=== PATIENT | female | born 1955 | race Caucasian/White ===

== ENCOUNTER → 2017-06-09 11:01 | Outpatient (CLI) | payer SELFPAY ==
[2017-06-09 12:24] LABS: Hematocrit 37.8 % (37-47); Hemoglobin 12.4 g/dl (12.0-15.0); Mean Corp Hgb Conc 32.8 g/gl (32-36); Mean Corpuscular Hgb 30.5 pg (27.0-32.0); Mean Corpuscular Volume 92.9 fL (81-99); Mean Platelet Vol. 9.9 fl (6.2-12.0); Platelet Count 246 K/mm3 (150-450); RBC Distribution Width CV 12.7 % (11.6-14.6); RBC Distribution Width SD 42.3 fl (35.1-43.9); Red Blood Count 4.07 M/mm3 (4.2-5.4); White Blood Count 4.4 K/mm3 (4.4-11.0)
[2017-06-09 12:28] LABS: Scan Indicated on CBC? Y/N NO
[2017-06-09 12:34] LABS: ALB/GLOB Ratio 1.1 RATIO (0.9-2.4); AST(SGOT) 22 U/L (15-37); Alanine Aminotransfer ALT/SGPT 25 U/L (13-56); Albumin, Serum 3.9 g/dL (3.2-5.0); Alkaline Phosphatase 56 U/L (45-117); Anion Gap 5 (5-15); BUN 14 mg/dL (7-18); BUN/Creat Ratio 22.6 RATIO (10-20); Calcium,Total 9.2 mg/dL (8.5-10.1); Chloride 103 mmol/L (98-107); Creatinine, Serum 0.62 mg/dL (0.55-1.02); EST Glomerular Filtration Rate 104 mL/min (>60); Est Glom Filt Rate - Afr Amer 125 mL/min (>60); Globulin 3.6 g/dL (2.2-4.2); Glucose 88 mg/dL (74-106); Potassium 4.2 mmol/L (3.5-5.1); Protein, Total 7.5 g/dL (6.4-8.2); Sodium Level 140 mmol/L (136-145)
== END ==
PROVIDERS: Family Provider Family Medicine; PCP Family Medicine; Visit Provider Family Medicine
DX: Z01.818 Encounter for other preprocedural examination (principal)
CPT/HCPCS: 36415; 80053; 85027

== ENCOUNTER → 2017-07-28 13:50 | Outpatient (CLI) | payer SELFPAY | PROVIDERS: Family Provider Family Medicine; PCP Family Medicine; Visit Provider Podiatrist | DX: Z01.818 Encounter for other preprocedural examination (principal) ==

== ENCOUNTER → 2018-07-14 10:31 | Outpatient (CLI) | payer SELFPAY ==
[2017-05-03 08:36] VITALS: BMI 19.4
[2018-07-14 13:20] LABS: Anion Gap 6 (5-15); BUN 18 mg/dL (7-18); BUN/Creat Ratio 28.2 RATIO (10-20); Calcium,Total 9.2 mg/dL (8.5-10.1); Chloride 105 mmol/L (98-107); Creatinine, Serum 0.64 mg/dL (0.55-1.02); EST Glomerular Filtration Rate 100 mL/min (>60); Est Glom Filt Rate - Afr Amer 121 mL/min (>60); Glucose 88 mg/dL (74-106); Potassium 4.1 mmol/L (3.5-5.1); Sodium Level 143 mmol/L (136-145); Thyroid Stim Hormone (TSH) 0.36 uIU/mL (0.358-3.74)
[2018-07-14 14:22] LABS: Vitamin D,25 Hydroxy 69.1 ng/mL (29.95-100.01)
== END ==
PROVIDERS: Family Provider Family Medicine; PCP Family Medicine; Referring Provider Family Medicine; Visit Provider Family Medicine
DX: I10 Essential (primary) hypertension (principal); E03.9 Hypothyroidism, unspecified; M81.0 Age-related osteoporosis without current pathological fracture
CPT/HCPCS: 36415; 80048; 82306; 84443

== ENCOUNTER → 2020-01-24 10:53 | Outpatient (CLI) | payer MEDICARE, BC, SELFPAY ==
--- NOTE | 2020-01-24 10:59 | RAD_ITS ---
HISTORY: back pain ADDITIONAL HISTORY: None provided. EXAMINATION/TECHNIQUE: XR Spine Thoracic 3 Views Number of images including paperwork: 3 COMPARISON: 12/01/2011 FINDINGS: VERTEBRAE: No acute fracture. VERTEBRAL ALIGNMENT: No traumatic subluxation. 25 right convex thoracic scoliosis, previously 22. DISKS AND JOINTS: Mild to moderate multilevel discogenic degenerative changes. SOFT TISSUES: Unremarkable paraspinous soft tissues. ANCILLARY FINDINGS: Enlarged cardiac silhouette. Surgical clips right lower neck. RAD/Thoracic Spine 3 Views IMPRESSION: No acute findings. Degenerative changes. Thoracic scoliosis. at [id number] Reported and signed by: Lety Daniel MD Electronically Signed: Lety Daniel MD at 23:04 EDT Tel , Service support ,
== END ==
PROVIDERS: PCP Family Medicine; Referring Provider Family Medicine; Visit Provider Family Medicine
DX: M54.9 Dorsalgia, unspecified (principal)
CPT/HCPCS: 72072

== ENCOUNTER → 2020-03-01 10:49 | Outpatient (CLI) | payer MEDICARE, BC, SELFPAY ==
--- NOTE | 2020-03-01 10:53 | RAD_ITS ---
STUDY: X-RAY - PELVIS REASON FOR EXAM: Female, 64 years old. Patient states back and hip pain. Hx of arthritis. TECHNIQUE: One view of the pelvis was obtained. COMPARISON: None. FINDINGS: There is a non-specific bowel gas pattern. There are multiple calcified phleboliths. Normal bilateral iliac wings, sacroiliac joints and visualized sacrum. Normal visualized bilateral superior and inferior pubic rami. Normal pubic symphysis. Normal ischial tuberosities. Normal visualized right femoral head. Normal right acetabulum. Normal right hip joint. Normal visualized left femoral head. Normal left acetabulum. Normal left hip joint. RAD/Pelvis 1 or 2 Views IMPRESSION: Normal x-ray examination of the pelvis. Electronically Signed: Chava Cardenas, at 15:58 EST , Service support ,
[2020-03-01 12:49] LABS: Erythrocyte Sedimentation Rate 8 mm/hr (0-30)
[2020-03-01 12:52] LABS: Absolute Lymphocyte Count 1.07 X10^3/uL (0.83-4.51); Absolute Neutrophil Count 2.5 X10^3/uL (2.0-7.7); Basophil# 0.03 X10^3/uL; Basophil% 0.7 % (0-1); Eosinophil# 0.12 X10^3/uL; Eosinophils% 2.9 % (0-5); Hematocrit 36.3 % (37-47); Hemoglobin 11.5 g/dL (12.0-15.0); Lymphocyte # 1.07 X10^3/ul (4.0); Lymphocyte % 25.7 % (19-41); Mean Corp Hgb Conc 31.7 g/dL (32-36); Mean Corpuscular Hgb 29.9 pg (27.0-32.0); Mean Corpuscular Volume 94.3 fL (81-99); Monocyte# 0.41 X10^3/uL; Monocyte% 9.9 % (0-10); NRBC Flagged by Analyzer 0 % (0-5); Neutrophil # 2.53 X10^3/uL (2.7-7.7); Neutrophil % 60.8 % (47-70); Platelet Count 256 K/mm3 (150-450); RBC Distribution Width CV 12.6 % (11.6-14.6); RBC Distribution Width SD 43.6 fl (35.1-43.9); Red Blood Count 3.85 M/mm3 (4.2-5.4); White Blood Count 4.2 K/mm3 (4.4-11.0)
[2020-03-01 13:10] LABS: ALB/GLOB Ratio 1.1 RATIO (0.9-2.4); AST(SGOT) 22 U/L (15-37); Alanine Aminotransfer ALT/SGPT 23 U/L (13-56); Albumin, Serum 3.6 g/dL (3.2-5.0); Alkaline Phosphatase 58 U/L (45-117); Anion Gap 3 (5-15); BUN 20 mg/dL (7-18); BUN/Creat Ratio 31.2 RATIO (10-20); CRP < 2.90 mg/L (0.0-3.0); Calcium,Total 8.9 mg/dL (8.5-10.1); Chloride 110 mmol/L (98-107); Creatinine, Serum 0.64 mg/dL (0.55-1.02); EST Glomerular Filtration Rate 99 mL/min (>60); Est Glom Filt Rate - Afr Amer 119 mL/min (>60); Globulin 3.4 g/dL (2.2-4.2); Glucose 86 mg/dL (74-106); Potassium 3.7 mmol/L (3.5-5.1); Rheumatoid Factor < 10.0 IU/mL (<15); Sodium Level 143 mmol/L (136-145)
[2020-03-01 13:27] LABS: Cholesterol 203 mg/dL (200); High Density Lipoprotein 87 mg/dL; Thyroid Stim Hormone (TSH) 0.46 uIU/mL (0.358-3.74); Triglycerides 86 mg/dL; Very Low Density Lipoprotein 17 mg/dL (5-40)
[2020-03-01 13:35] LABS: PTHIN 57.2 pg/mL (18.4-80.1)
[2020-03-01 13:47] LABS: Vitamin D,25 Hydroxy 63.2 ng/mL
[2020-03-01 14:40] LABS: Hepatitis B Surface Antibody Non-Reactive; Hepatitis B Surface Antigen Non-Reactive (Nonreactive); Hepatitis C Antibody Non-Reactive (Nonreactive)
[2020-03-02 14:38] LABS: ANTINUCLEAR ANTIBODIES DIRECT Negative (Negative)
[2020-03-03 11:03] LABS: CCP IgG Antibodies 4 units (0-19); Hepatitis B Core AB IgM Negative (Negative)
== END ==
PROVIDERS: PCP Family Medicine; Referring Provider Internal Medicine Rheumatology; Visit Provider Internal Medicine Rheumatology
DX: L40.59 Other psoriatic arthropathy (principal); L40.8 Other psoriasis; M51.34 Other intervertebral disc degeneration, thoracic region; M41.9 Scoliosis, unspecified; E89.0 Postprocedural hypothyroidism; I10 Essential (primary) hypertension; G47.00 Insomnia, unspecified
CPT/HCPCS: 72170; 80053; 80061; 82306; 83970; 84100; 84443; 85025; 85652; 86038; 86140; 86200; 86431; 86705; 86706; 86803; 87340

== ENCOUNTER 2020-03-06 11:00 | Outpatient (RCR) | payer MEDICARE, BC, SELFPAY ==
--- NOTE | 2020-02-07 11:56 | HP.PTEVAL_ITS ---
Patient's Visit Information ROD MIRAMONTES is a 64 year old F referred to Physical Therapy by Dr. Laci Tinajero MD with a diagnosis of BACK PAIN. Date of Evaluation: 02/07/20 Physical Therapist: Julia Ignacio PT, Cert MDT - Visit Plan Frequency: 2-3x /Week Duration: 4-6 Weeks Plan: THORACIC US, MH, POSTURE CORRECTION/STRENGTHENING, INSTRUCTION IN APPROPRIATE BODY MECHANICS AND ACTIVITY MODIFICATIONS. DLS STARTING WITH A NEUTRAL SPINE PROGRESSING ROM TOLERATED. FACUNDO LE ROM, STRETCHING AND STRENGTHENING. HEP INSTRUCTION. - Subjective Work/Leisure: UNEMPLOYEED. Present symptoms: MID BACK PAIN CENTRALLY AND OFF TO THE RIGHT. Present since: A FEW YEARS. Pain Scale: WORST 5/10, LEAST 0/10. Currently: 0/10. Commenced as a result of: NO APPARENT REASON. Symptoms at onset: SAME. Worse: WORKING IN THE KITCHEN, NOT MOVING AROUND MUCH - STANDING, SOMETIMES IN BED. Better: SITTING, IBUPROFEN PRESCRIPTION, SOMETIMES LYING DOWN. SITTING IS THE BEST. Disturbed sleep: A LITTLE BIT. Previous history/Previous treatment: UNREMARKABL. Coughing/sneezing/straining: NEGATIVE. Gait: NORMAL. Difficulty initiating urinatin: NO. Accidents: NO. Unexplained weight loss: NO. Imaging: RECENT BACK X-RAY SHOWING SCOLIOSIS AND ARTHRITIS PER PATIENT REPORT. [facility] EMR: COMPARISON: 12/01/2011. FINDINGS: VERTEBRAE: No acute fracture. VERTEBRAL ALIGNMENT: No traumatic subluxation. 25 right convex thoracic. scoliosis, previously 22. DISKS AND JOINTS: Mild to moderate multilevel discogenic degenerative. changes. SOFT TISSUES: Unremarkable paraspinous soft tissues. ANCILLARY FINDINGS: Enlarged cardiac silhouette. Surgical clips right lower. neck. RAD/Thoracic Spine 3 Views. IMPRESSION: No acute findings. Degenerative changes. Thoracic scoliosis. PMH/Recent major surgery: H/O THYROID CA - THYROIDECTOMY. HTN. OSTEOPOROSIS. NECK PAIN AND STIFFNESS. OTHER: PATIENT REPORTS IT IS AGONIZING IF SHE IS IN THE KITCHEN TOO LONG OR STANDS TOO LONG. 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 ALSO STATES SHE WALKS AND JOGS. - Objective Sitting/Standing Posture: SCOLIOSIS WITH RIGHT RIB HUMP. Active Correction of posture: NE. Other Observations: INDEP GAIT AND TRANSFERS. Motor deficit: FACUNDO UE'S AND LE'S WFL. Sensory deficit: FACUNDO UE'S AND LE'S INTACT AND SYMMETRICAL. ROM deficit: FACUNDO UE'S AND LE'S WFL. Reflexes: UNABLE TO ELICIT FACUNDO UE AND LE DTR'S BUT PATIENT IS VERY GUARDED. Dural Signs: NEGATIVE FACUNDO LE'S. Lumbar mvmt loss: flex - NIL. ext - MIN. R SG - MIN. L SG - MIN. THORACIC MVMT LOSS: FLEX - NIL, EXT - MOD, R ROT - MOD, L ROT - MIN. Core strength: FAIR. Palpation: RIGHT RIB HUMP. TREATMENT: NEUROMUSCULAR REEDUCATION - RETRAINING OF MVMT AND POSTURE FOR SITTING, LYING AND STANDING ACTIVITIES. - Goals Goal 1:: DECREASE C/O BACK PAIN Goal Time Frame: 4-6 Weeks Goal 2:: IMPROVE SITTING, STANDING, SLEEP AND HOMEMAKING FUNCTION. Goal Time Frame: 4-6 Weeks Goal 3:: INSTRUCT IN PROPHYLAXIS - Anticipated Interventions Patient/Client Instruction: Educate patient on: Condition, Plan of Care, Risk Factors, Benefits of Fitness Program For the Purpose of:: To improve self management Therapeutic Exercise to Include: Strength training, Body mechanics, Postural training, Flexibilty training, Neuromotor development, Dynamic Lumbar Stabilization Comment: PATIENT DOES NOT REALLY LIKE WATER For the Purpose of:: To decrease pain, To improve muscle performance and motor function, To increase tolerance to activity/condition/position, To improve ability of physical actions for home/community/work/leisure Cryotherapy (ice pack, ice massage): Yes Thermo therapy (hot pack): Yes Ultrasound (thermal/non thermal): Yes For the Purpose of:: To decrease pain, To improve nutrient delivery to tissue Thank you for the opportunity to evaluate your patient. For Medicare and Medicare HMO plans, please review the plan of care and approve it. It will need to be FAXED BACK to us at [phone] for Medicare purposes. For Medicare only, by signing this I certify the plan of care. Please let me know if there are questions or concerns regarding this plan of care. Physician S ignature: Date:
--- NOTE | 2020-03-06 12:36 | HP.PTDCSUM ---
It has been my pleasure to treat ROD MIRAMONTES referred by Dr. Laci Tinajero MD, with the diagnosis of BACK PAIN for a total of 5 visit(s). Discharge Date: 03/06/20 Please see the following information for a summary of their discharge status. Subjective: PATIENT REPORTS SHE IS DOING A LOT BETTER. SHE REPORTS SHE IS DOING GOOD WITH HER EX'S AND DOESN'T THINK SHE NEEDS THE US ANYMORE. STATES SHE CAN CONTROL HER PAIN MUCH BETTER NOW AND WOULD LIKE TODAY TO BE HER LAST CELIO'T. MID BACK Pain Intensity (Out of 10): 0 % Improvement: 75 Objective/Function: PATIENT WAS SEEN TODAY FOR RE-ASSESSMENT OF PROGRESS TOWARD THE SET PT GOALS AND THE NEED FOR FURTHER PHYSICAL THERAPY VS READINESS FOR DISCHARGE. PATIENT IS A INDEP WITH A HEP AND WOULD LIKE TO BE DISCHARGE TO CONTINUE WITH THE HOME EX'S AT THIS TIME. UPON EXAM TODAY: Lumbar mvmt loss: flex - NIL. ext - MIN. R SG - MIN. L SG - MIN. THORACIC MVMT LOSS: FLEX - NIL, EXT - MIN, R ROT - MIN, L ROT - MIN. Core strength: FAIR. Palpation: RIGHT RIB HUMP Goal 1:: DECREASE C/O BACK PAIN Goal Progress: Goal Met Goal 2:: IMPROVE SITTING, STANDING, SLEEP AND HOMEMAKING FUNCTION. Goal Progress: Goal Met Goal 3:: INSTRUCT IN PROPHYLAXIS Goal Progress: Goal Met Plan: D/C. PATIENT AGREEABLE. If there are questions or concerns regarding this patient's physical therapy, please feel free to call me at [phone]. Thank you for the referral of this patient. Sincerely, Julia Ignacio, PT, Cert MDT
== END 2020-03-06 13:43 | disposition home or self-care (01) ==
LOC: PT 11:00
PROVIDERS: PCP Family Medicine; Referring Provider Family Medicine; Visit Provider Family Medicine
DX: M54.9 Dorsalgia, unspecified (principal)
CPT/HCPCS: 97035; 97110; 97112; 97140; 97162; 97164; 97530

== ENCOUNTER → 2020-07-10 10:37 | Outpatient (CLI) | payer MEDICARE, BC, SELFPAY ==
[2020-07-10 13:24] LABS: Anion Gap 4 (5-15); BUN 15 mg/dL (7-18); BUN/Creat Ratio 23.3 RATIO (10-20); Calcium,Total 9.5 mg/dL (8.5-10.1); Chloride 105 mmol/L (98-107); Creatinine, Serum 0.64 mg/dL (0.55-1.02); EST Glomerular Filtration Rate 98 mL/min (>60); Est Glom Filt Rate - Afr Amer 119 mL/min (>60); Glucose 90 mg/dL (74-106); Potassium 3.9 mmol/L (3.5-5.1); Sodium Level 141 mmol/L (136-145)
== END ==
PROVIDERS: PCP Family Medicine; Referring Provider Family Medicine; Visit Provider Family Medicine
DX: I10 Essential (primary) hypertension (principal)
CPT/HCPCS: 36415; 80048

== ENCOUNTER → 2020-07-31 09:54 | Outpatient (CLI) | payer MEDICARE, BC, SELFPAY ==
--- NOTE | 2020-07-31 09:58 | BD_ITS ---
STUDY: DUAL ENERGY X-RAY ABSORPTIOMETRY / DXA REASON FOR EXAM: Female, 64 years old. [id number] TECHNIQUE: Bone Mineral Density (BMD) measurements of lumbar spine and bilateral hips were obtained. COMPARISON: Comparison is made with prior study dated 10/30/2015. FINDINGS: Lumbar Spine (L1-L4): g/cm2 (0.827) / T-score (-2.9) / Z-score (-1.3) Findings are suggestive of osteoporosis with a high fracture risk. Left Femur Total: g/cm2 (0.693) / T-score (-2.5) / Z-score (-1.3) Left Femoral Neck: g/cm2 (0.741) / T-score (-2.1) / Z-score (-0.7) Right Femur Total: g/cm2 (0.652) / T-score (-2.8) / Z-score (-1.6) Right Femoral Neck: g/cm2 (0.701) / T-score (-2.4) / Z-score (-0.9) The T-Scores on the most recent prior examination were: Lumbar Spine (L1-L4): There has been worsening of bone density since the previous examination. Left Femur Total: which represents a worsening of 2.3%. Right Femur Total: which represents an improvement of 0.8%. BD/Dexa Bone Density Study IMPRESSION: The patient is considered osteoporotic as outlined below according to World Manoj Organization (WHO) criteria with a high fracture risk. There has been worsening of bone density since the previous examination. Reference Information: The T-score is the number of standard deviations above or below the standard which is normal for young adults at their peak bone mineral density. The World Health Organization (WHO) interprets the T-scores as follows: Above -1 Normal bone density Between -1 and -2.5 Osteopenia Equal to / or below -2.5 Osteoporosis As a practical clinical guideline, osteopenia may be graded as follows: Mild -1 through -1.5 Moderate -1.6 through -2.0 Severe -2.1 through -2.4 The Z-score is the number of standard deviations above or below age-matched controls. A Z-score of less than -1.5 would be considered abnormal. References: 1. NIH Osteoporosis and Related Bone Diseases www osteo.org 2. International Society for Clinical Densitometry www iscd.org 3. National Osteoporosis Foundation www nof.org Electronically Signed: Chava Cardenas MD at 12:28 EDT , Service support ,
== END ==
PROVIDERS: PCP Family Medicine; Referring Provider Family Medicine; Visit Provider Family Medicine
DX: Z00.00 Encounter for general adult medical examination without abnormal findings (principal); Z78.0 Asymptomatic menopausal state
CPT/HCPCS: 77080

== ENCOUNTER → 2020-08-08 08:57 | Outpatient (CLI) | payer MEDICARE, BC, SELFPAY ==
[2017-05-03 08:36] VITALS: BMI 19.4
--- NOTE | 2020-08-08 09:13 | AAAS_ITS ---
Reason For Study: Routine medical exam Aorta Measurements Aorta Doppler Measurements Proximal aorta measures1.76 x 1.74cm. in cross- Peak systolic flow velocities within the proximal sectional axis. aorta measure 86.4 cm/sec. Proximal aorta measures1.78cm. in longitudinal Peak systolic flow velocities within the mid aorta axis. measure 103.9 cm/sec. Mid aorta measures1.52 x 1.54cm. in cross- Peak systolic flow velocities within the distal sectional axis. aorta measure 85.5 cm/sec. Mid aorta measures1.57cm. in longitudinal axis. Distal aorta measures1.45 x 1.42cm. in cross- sectional axis. Distal aorta measures1.40cm. in longitudinal axis. Left Iliac Artery Left iliac artery measures 0.93 x 0.91 cm. in the cross-sectional axis. Left iliac artery measures 0.91 cm. in the longitudinal axis. Peak systolic velocity in the left iliac artery measures 99 cm/sec. Right Iliac Artery Right iliac artery measures 0.82 x 0.80 cm. in the cross-sectional axis. Right iliac artery measures 0.78 cm. in the longitudinal axis. Peak systolic velocity in the right iliac artery measures 115.4 cm/sec. Procedure Aorta IVC Iliac vasculature or bypass grafts [id number]. Exam performed in department. VL/AAA Screening Interpretation Summary The dimensions of the intra-abdominal aorta appear normal, without evidence of aneurysmal dilatation. The iliac arteries are also normal in size bilaterally. The intra-a bdominal aorta and iliac arteries are patent, demonstrating normal, pulsatile arterial flow and no rmal peak systolic velocities. Ordering Physician: Laci Tinajero Referring Physician: Laci Tinajero Performed By: Yajaira Mcdowell RVT and Student
== END ==
PROVIDERS: PCP Family Medicine; Referring Provider Family Medicine; Visit Provider Family Medicine
DX: Z00.00 Encounter for general adult medical examination without abnormal findings (principal)
CPT/HCPCS: 76706

== ENCOUNTER 2021-07-15 11:15 | Outpatient (CLI) | payer MEDICARE, BC, SELFPAY ==
[2021-07-15 16:09] LABS: Vitamin D,25 Hydroxy 53.1 ng/mL
[2021-07-15 16:18] LABS: Anion Gap 3 (5-15); BUN 14 mg/dL (7-18); BUN/Creat Ratio 22.3 RATIO (10-20); Calcium,Total 9.4 mg/dL (8.5-10.1); Chloride 108 mmol/L (98-107); Creatinine, Serum 0.63 mg/dL (0.55-1.02); EST Glomerular Filtration Rate 101 mL/min (>60); Est Glom Filt Rate - Afr Amer 122 mL/min (>60); Glucose 87 mg/dL (74-106); Magnesium 2.2 mg/dL (1.6-2.6); Phosphorus 3.7 mg/dL (2.5-4.9); Potassium 3.8 mmol/L (3.5-5.1); Sodium Level 142 mmol/L (136-145); Thyroid Stim Hormone (TSH) 0.23 uIU/mL (0.358-3.74)
== END 2021-07-15 23:59 | disposition home or self-care (01) ==
PROVIDERS: PCP Family Medicine; Referring Provider Family Medicine; Visit Provider Family Medicine
DX: E03.9 Hypothyroidism, unspecified (principal); M81.0 Age-related osteoporosis without current pathological fracture
CPT/HCPCS: 80048; 82306; 82330; 83735; 84100; 84443

== ENCOUNTER → 2022-10-14 | Outpatient (CLI) | payer MEDICARE, BC, SELFPAY ==
--- NOTE | 2022-10-14 14:19 | RAD_ITS ---
INDICATION: Cough EXAMINATION/TECHNIQUE: X-RAY - XR Chest 2 Views COMPARISON: Thoracic spine x-rays 01/24/2020. FINDINGS: LINES/DEVICES: None. LUNGS: Hyperinflated. Prominence of the interstitial lung markings especially at the lung bases. Biapical pleural thickening. No consolidation. No pneumothorax. MEDIASTINUM: Aorta is atherosclerotic. CARDIAC SILHOUETTE: Not enlarged. BONES AND SOFT TISSUES: Degenerative changes in the dorsal spine and scoliosis. Surgical clips overlying the base of the neck on the right. RAD/Chest PA and Lateral IMPRESSION: Hyperinflated. Findings of probable COPD. No infiltrates. Follow-up CT chest may be helpful if symptoms persist. Electronically Signed: Daxa Brandt MD at 16:58 EDT ,
== END | disposition home or self-care (01) ==
LOC: MTRAD 14:19
PROVIDERS: PCP Family Medicine; Referring Provider Family Medicine; Visit Provider Family Medicine
DX: R05.8 Other specified cough (principal)
CPT/HCPCS: 71046

== ENCOUNTER → 2022-10-29 | Outpatient (CLI) | payer MEDICARE, BC, SELFPAY ==
[2022-10-29 13:41] LABS: Vitamin D,25 Hydroxy 60.4 ng/mL
[2022-10-29 13:48] LABS: ALB/GLOB Ratio 0.9 RATIO (0.9-2.4); AST(SGOT) 20 U/L (15-37); Alanine Aminotransfer ALT/SGPT 19 U/L (13-56); Albumin, Serum 3.5 g/dL (3.2-5.0); Alkaline Phosphatase 73 U/L (45-117); Anion Gap 6 (5-15); BUN 18 mg/dL (7-18); BUN/Creat Ratio 27.6 RATIO (10-20); Calcium,Total 9.4 mg/dL (8.5-10.1); Chloride 108 mmol/L (98-107); Cholesterol 197 mg/dL (200); Creatinine, Serum 0.65 mg/dL (0.55-1.02); EST Glomerular Filtration Rate 96 mL/min (>60); Est Glom Filt Rate - Afr Amer 116 mL/min (>60); Globulin 3.9 g/dL (2.2-4.2); Glucose 92 mg/dL (74-106); High Density Lipoprotein 69 mg/dL; Potassium 4.2 mmol/L (3.5-5.1); Protein, Total 7.4 g/dL (6.4-8.2); Sodium Level 141 mmol/L (136-145); T4 Free Direct 1.46 ng/dL (0.76-1.46); Thyroid Stim Hormone (TSH) 0.15 uIU/mL (0.358-3.74); Triglycerides 65 mg/dL; Very Low Density Lipoprotein 13 mg/dL (5-40)
== END | disposition home or self-care (01) ==
PROVIDERS: PCP Family Medicine; Referring Provider Family Medicine; Visit Provider Family Medicine
DX: Z00.00 Encounter for general adult medical examination without abnormal findings (principal); L40.50 Arthropathic psoriasis, unspecified; Z13.220 Encounter for screening for lipoid disorders; E03.9 Hypothyroidism, unspecified; E55.9 Vitamin D deficiency, unspecified
CPT/HCPCS: 36415; 80053; 80061; 82306; 84439; 84443

== ENCOUNTER → 2023-06-17 | Outpatient (CLI) | payer MEDICARE, BC, SELFPAY ==
--- NOTE | 2023-06-17 13:23 | BD_ITS ---
STUDY: DUAL ENERGY X-RAY ABSORPTIOMETRY / DXA REASON FOR EXAM: Female, 67 years old. M810 TECHNIQUE: Bone Mineral Density (BMD) measurements of lumbar spine and bilateral hips were obtained. COMPARISON: Comparison is made with prior study July 31, 2020. FINDINGS: Lumbar Spine (L1-L4): g/cm2 (0.710) / T-score (-2.8) / Z-score (-0.8) Findings are suggestive of osteoporosis with a high fracture risk. Left Femur Total: g/cm2 (0.621) / T-score (-2.6) / Z-score (-1.2) Left Femoral Neck: g/cm2 (0.535) / T-score (-2.8) / Z-score (-1.1) Right Femur Total: g/cm2 (0.602) / T-score (-2.8) / Z-score (-1.4) Right Femoral Neck: g/cm2 (0.533) / T-score (-2.9) / Z-score (-1.1) The T-Scores on the most recent prior examination were: Lumbar Spine (L1-L4): There has been worsening of bone density since the previous examination. Left Femur Total: which represents a worsening of 2.2%. Right Femur Total: which represents an improvement of 1.1%. BD/Dexa Bone Density Study IMPRESSION: The patient is considered osteoporotic as outlined below according to World Manoj Organization (WHO) criteria with a high fracture risk. There has been worsening of bone density since the previous examination. Reference Information: The T-score is the number of standard deviations above or below the standard which is normal for young adults at their peak bone mineral density. The World Health Organization (WHO) interprets the T-scores as follows: Above -1 Normal bone density Between -1 and -2.5 Osteopenia Equal to / or below -2.5 Osteoporosis As a practical clinical guideline, osteopenia may be graded as follows: Mild -1 through -1.5 Moderate -1.6 through -2.0 Severe -2.1 through -2.4 The Z-score is the number of standard deviations above or below age-matched controls. A Z-score of less than -1.5 would be considered abnormal. References: 1. NIH Osteoporosis and Related Bone Diseases www osteo.org 2. International Society for Clinical Densitometry www iscd.org 3. National Osteoporosis Foundation www nof.org Electronically Signed: Chava Cardenas MD at 15:02 EST ,
--- OUTSIDE RECORDS SUMMARY | 2023-06-17 14:02 | XMS RPT_ITS | CCD ---
Author Name Unknown Address [address] [place] [address] [place] [address] Organization [facility] Care Team Providers Care Divemaster Name Role Phone GABY PETER Unavailable Unavailable Allergies Allergy Classification Reported Allergen(s) Allergy Type Date of Onset Reaction(s) Facility (1 source) midazolam; Translations: [MIDAZOLAM HCL] Drug Allergy 08-19-2007 [facility] Repository Results Test Name Value Interpretation Reference Range Facil ity Encounters Encounter Date Encounter Type Care Provider Facility Start: 05-19-2017 End: 05-19-2017 Ambulatory GABY PETER [facility] Summary Purpose Family History No Family History Records Found Advance Directives No Advanced Directives Records Found Additional Source Comments INFORMATION SOURCE (unrecogn ized section and content) FOR RECORDS PERTAINING TO PATIENTS WHO ARE OR HAVE BEEN ENROLLED IN A CHEMICAL DEPENDENCY/SUBSTANCEABUSE PROGRAM, SOME INFORMATION MAY BE OMITTED. This clinical summary was aggregated from multiple sources. Caution should be exercised in using it in the provision of clinical care. This summary normalizes information from multiple sources, and as a consequence, information in this document may materially change the coding, format and clinical context of patient data. In addition, data may be omitted in some cases. CLINICAL DECISIONS SHOULD BE BASED ON THE PRIMARY CLINICAL RECORDS. [employer] provides no warranty or guarantee of the accuracy or completeness of information in this document.
== END | disposition home or self-care (01) ==
LOC: OPBD 13:16
PROVIDERS: PCP Family Medicine; Referring Provider Family Medicine; Visit Provider Family Medicine
DX: M81.0 Age-related osteoporosis without current pathological fracture (principal)
CPT/HCPCS: 77080

== ENCOUNTER → 2024-02-04 | Outpatient (CLI) | payer MEDICARE, BC, SELFPAY ==
[2024-02-04 11:37] LABS: Ionized Calcium Order ORDER TUBE
[2024-02-04 12:37] LABS: PTHIN 51.5 pg/mL (18.4-80.1)
[2024-02-04 12:47] LABS: Vitamin D,25 Hydroxy 54.6 ng/mL
[2024-02-04 12:58] LABS: Ionized Calcium 5.04 mg/dL (4.36-5.20)
[2024-02-04 13:21] LABS: ALB/GLOB Ratio 1.1 RATIO (0.9-2.4); AST(SGOT) 16 U/L (15-37); Alanine Aminotransfer ALT/SGPT 22 U/L (13-56); Albumin, Serum 3.7 g/dL (3.2-5.0); Alkaline Phosphatase 67 U/L (45-117); Anion Gap 4 (5-15); BUN 14 mg/dL (7-18); BUN/Creat Ratio 24.8 RATIO (10-20); Calcium,Total 9.6 mg/dL (8.5-10.1); Chloride 107 mmol/L (98-107); Cholesterol 199 mg/dL (200); Creatinine, Serum 0.56 mg/dL (0.55-1.02); EST Glomerular Filtration Rate 113 mL/min (>60); Est Glom Filt Rate - Afr Amer 137 mL/min (>60); Globulin 3.4 g/dL (2.2-4.2); Glucose 87 mg/dL (74-106); High Density Lipoprotein 86 mg/dL; Magnesium 2.4 mg/dL (1.6-2.6); Phosphorus 3.4 mg/dL (2.5-4.9); Potassium 4.1 mmol/L (3.5-5.1); Protein, Total 7.1 g/dL (6.4-8.2); Sodium Level 141 mmol/L (136-145); Thyroid Stim Hormone (TSH) 0.178 uIU/mL (0.358-3.740); Triglycerides 49 mg/dL; Very Low Density Lipoprotein 10 mg/dL (5-40)
== END | disposition home or self-care (01) ==
LOC: MFPLAB 10:36
PROVIDERS: PCP Family Medicine; Visit Provider Family Medicine
DX: M81.0 Age-related osteoporosis without current pathological fracture (principal); I10 Essential (primary) hypertension; E03.9 Hypothyroidism, unspecified
CPT/HCPCS: 36415; 80053; 80061; 82306; 82330; 83735; 83970; 84100; 84439; 84443

== ENCOUNTER → 2024-05-16 | Outpatient (CLI) | payer MEDICARE, BC, SELFPAY ==
[2024-05-16 12:40] LABS: Thyroid Stim Hormone (TSH) 0.579 uIU/mL (0.358-3.740)
== END | disposition home or self-care (01) ==
LOC: MTLAB 10:11
PROVIDERS: PCP Family Medicine; Referring Provider Family Medicine; Visit Provider Family Medicine
DX: E03.9 Hypothyroidism, unspecified (principal)
CPT/HCPCS: 36415; 84443

== ENCOUNTER → 2024-06-20 | Outpatient (CLI) | payer MEDICARE, BC, SELFPAY ==
--- NOTE | 2024-06-20 14:33 | RAD_ITS ---
PROCEDURE: Lumbar spine radiographs, 6 views REASON FOR EXAM: Low back pain TECHNIQUE: 6 views of the lumbar spine were obtained. COMPARISON: None. FINDINGS: 6 views of the lumbar spine were obtained. Bones are osteopenic. Included portions of the pelvis and SI joints are intact. There is moderate leftward curvature of the lumbar spine on the AP view. Included lower lungs clear. There is 15 mm of right lateral subluxation of L2 relative to L3 on the AP view. Grade 1 retrolisthesis of L3 relative to L4. Mild/moderate multilevel degenerative disc and facet disease in the lumbar spine, greatest at L3-4. No acute lumbar vertebral body fracture. No evidence of instability on flexion and extension views. RAD/L/S Spine w Bend Min 6 Vw IMPRESSION: Osteopenia. No acute bony abnormality of the lumbar spine. Moderate leftward convex curvature of the lumbar spine on the AP view. Mild/moderate multilevel degenerative disc and facet disease in the lumbar spin e. No evidence of instability on flexion and extension views. If there is persistent pain, short-term follow-up MRI evaluation may be conside red. Reading Location: [facility]
== END | disposition home or self-care (01) ==
LOC: MTRAD 14:32
PROVIDERS: PCP Family Medicine; Referring Provider Family Medicine; Visit Provider Family Medicine
DX: M54.9 Dorsalgia, unspecified (principal)
CPT/HCPCS: 72114

== ENCOUNTER 2024-06-28 10:50 | Outpatient (RCR) | payer MEDICARE, BC, SELFPAY ==
--- NOTE | 2024-06-28 13:04 | HP.PTEVAL ---
Patient's Visit Information Visit Information Visit Information: ROD MIRAMONTES is a 68 year old F referred to Physical Therapy by Dr. Kahlil Tinajero MD with a diagnosis of SI Joint pain. Date of Evaluation: 06/28/24 Physical Therapist: Regan Hendricks, PT, ATC Visit Plan Frequency: 1x/Week Duration: 1 Week Plan: Issue and instruct pt on HEP of REIL, core stab ex's, and HEP Subjective Subjective: Pt reports she has had a chronic Hx of LBP, but had a bad flare up around Kelsy time. Pt reports she has had x-rays which revealed scoliosis. Pt notes occasional sleep difficulty secondary to LBP. Pt denies any tingling or numbness in her LE's. Pt reports sitting tends to increase her pain. Pt notes walking makes her feel better. Pt reports she has more pain in the morning when she wakes up. Pt reports her pain gets better as she moves throughout the day, but the pain never goes away. Pt reports she has difficulty with getting dressed in the morning secondary to her LB hurting while she is donning her pants. 0/10 pain while sitting here at rest, 8/10 at worst Pain LBP: Pain Intensity (Out of 10): 0 Pain Intensity Range: 8 Objective Objective: Neuro: B LE sensation is WNL to light touch. B patellar reflex= 2/3 ROM: Pt is minimally limited with R SB and extension of the L/S. All other motions are WFL MMT: B LE's are equal and rated at 5/5 throughout Repeated movements: RFIS increases LBP. CELESTINA decreases LBP Balance/Special Test Scores Lower Extremity Functional Score: 64 Goals Goal 1:: I with HEP Goal Time Frame: 1 Week Rehabilitation Potential Physical Therapy Diagnosis: Pt has LBP, intolerance for sitting, and increased morning stiffness secondary to L/S disc derrangement. Rehabilitation Potential: Good Anticipated Interventions Patient/Client Instruction: Educate patient on: Condition and Plan of Care For the Purpose of:: To improve self management Therapeutic Exercise to Include: Strength training, Body mechanics, Postural training, Dynamic Lumbar Stabilization and Quinn Exercises For the Purpose of:: To decrease pain, To increase ROM and To improve muscle performance and motor function Text: Thank you for the opportunity to evaluate your patient. For Medicare and Medicare HMO plans, please review the plan of care and approve it. It will need to be FAXED BACK to us at [phone] for Medicare purposes. For Medicare only, by signing this I certify the plan of care. Please let me know if there are questions or concerns regarding this plan of care. Physician Signature: Date:
--- NOTE | 2024-12-20 13:20 | HP.PT.NRP ---
Patient Information Patient Information: ROD MIRAMONTES was seen in my office for initial evaluation on 06/28/24. The following Plan of Care was established for this patient: POC Established Initial Frequency: 1x/Week Initial Duration: 1 Week Anticipated Interventions Patient/Client Instruction: Educate patient on: Condition and Plan of Care For the Purpose of:: To improve self management Therapeutic Exercise to Include: Strength training, Body mechanics, Postural training, Dynamic Lumbar Stabilization and Quinn Exercises For the Purpose of:: To decrease pain, To increase ROM and To improve muscle performance and motor function Last Seen Last Seen: This patient was last seen in our office . Pertinent comments regarding their Physical therapy will appear below: Pt has not returned for greater than 30 days and is discontinued at this time. At this point I will be discontinuing this patient from physical therapy. I would be happy to see this patient again in the future if found appropriate by the physician. Thank you! Regan Hendricks, PT, ATC Balance/Gait/Functional tests Balance/Special Test Scores Lower Extremity Functional Score: 64
== END 2024-06-28 19:00 | disposition home or self-care (01) ==
LOC: PT 10:50
PROVIDERS: PCP Family Medicine; Referring Provider Family Medicine; Visit Provider Family Medicine
DX: M53.3 Sacrococcygeal disorders, not elsewhere classified (principal)
CPT/HCPCS: 97161

== ENCOUNTER 2024-12-22 04:09 | Emergency (ER) | payer MEDICARE, BC, SELFPAY ==
[2024-12-22 04:10] VITALS: BP 202/90; PULSE 99; RESP 18; TEMP 36.2; O2SAT 100; BMI 19.5
[2024-12-22 04:15] VITALS: BMI 19.5
[2024-12-22 04:21] VITALS: O2SAT 100
--- NOTE | 2024-12-22 04:21 | EKG12_ITS ---
Test Reason : HYPERTENSION Blood Pressure : */* mmHG Vent. Rate : 62 BPM Atrial Rate : 62 BPM P-R Int : 132 ms QRS Dur : 112 ms QT Int : 426 ms P-R-T Axes : 58 21 45 degrees QTcB Int : 432 ms Normal sinus rhythm Incomplete right bundle branch block Cannot rule out Anterior infarct , age undetermined Abnormal ECG Confirmed by CRIS REYES ([id number]), copy editor DANY CHAMORRO ([id number]) on 12/27/2024 6:32:48 AM Referred By: Confirmed By: CRIS REYES
--- NOTE | 2024-12-22 04:21 | CT_ITS ---
PROCEDURE: CTA HEAD AND NECK W/ CONTRAST 12/22/2024 REASON FOR EXAM: NEURO DEFICIT, ACUTE, STROKE SUSPECTED TECHNIQUE: CTA HEAD AND NECK W/ CONTRAST Multiplanar Sagittal and Coronal images were obtained. CONTRAST: Isovue-300 70 VOLUME: 100 mL One or more dose reduction techniques were used (e.g., Automated exposure control, adjustment of the mA and/or kV according to patient size, use of iterative reconstruction technique). RADIATION DOSE SUMMARY: CTDlvol: 10.74 mGy DLP: 382 mGycm COMPARISON: CT scan of the head on 12/22/2024. FINDINGS: Normal bilateral petrous carotid arteries. Calcified atheromatous plaques with mild multifocal stenosis of the right cavernous carotid artery with a normal supraclinoid bifurcation. Calcified atheromatous plaques with mild multifocal stenosis of the left cavernous carotid artery with a normal supraclinoid bifurcation. Normal right A1 segments of the anterior cerebral artery. Normal left A1 segments of the anterior cerebral artery. Normal intact anterior communicating artery (ACOM). Normal bilateral A2 segments of the anterior cerebral arteries. Normal right M1 and M2 segments of the middle cerebral arteries, with a normal M1 bifurcation. Normal left M1 and M2 segments of the middle cerebral arteries, with a normal M1 bifurcation. Normal right posterior communicating artery (PCOM). Normal left posterior communicating artery (PCOM). Normal bilateral vertebral arteries. Normal basilar artery with a normal basilar bifurcation. The visualized bilateral superior cerebellar (SCA) arteries are normal. Normal bilateral P1, P2 and visualized P3 segments of the posterior cerebral arteries. There is no demonstrated aneurysm of the [place] of [place]. There is no major vessel occlusion or hemodynamically significant stenosis. There is no demonstrated abnormality of the visualized brain. RIGHT CAROTID ARTERIES: Normal right common carotid artery (CCA). 30% stenosis of the right common carotid bulb. 30% stenosis of the origin of the right internal carotid (ICA) artery without a hemodynamically significant stenosis. Normal remaining visualized cervical portion of the right internal carotid artery. Normal origin of the right external carotid artery (ECA). LEFT CAROTID ARTERIES: Normal left common carotid artery (CCA). 20% stenosis of the left common carotid bulb. 20% stenosis of the origin of the left internal carotid (ICA) artery without a hemodynamically significant stenosis. Normal visualized cervical portion of the left internal carotid artery. Normal origin of the left external carotid artery (ECA). VERTEBRAL ARTERIES: Normal bilateral vertebral artery without a hemodynamically significant stenosis. CT/CTA Head AND Neck W/ Contrast IMPRESSION: Atherosclerosis without high-grade stenosis. Reading [facility]
--- NOTE | 2024-12-22 04:25 | CT_ITS ---
PROCEDURE: BRAIN/HEAD WITHOUT CONTRAST 12/22/2024 REASON FOR EXAM: NEURO DEFICIT, ACUTE, STROKE SUSPECTED TECHNIQUE: BRAIN/HEAD WITHOUT CONTRAST Coronal and Sagittal reconstruction series were provided. One or more dose reduction techniques were used (e.g., Automated exposure control, adjustment of the mA and/or kV according to patient size, use of iterative reconstruction technique. RADIATION DOSE SUMMARY: CTDlvol: 10.74 mGy DLP: 382 mGycm COMPARISON: None. FINDINGS: Mild diffuse cortical atrophy, commensurate with the patient's age. Scattered hypodense foci in the periventricular and subcortical white matter suggestive of chronic ischemic white matter disease. Normal size of the ventricles and extra-axial spaces for the patient's age. Normal basal ganglia and thalami. Normal brainstem. Normal cerebellum. There is no demonstrated extra-axial, intraparenchymal, or intraventricular hemorrhage. There are no findings of an acute ischemic infarction. Normal calvarium. There is no demonstrated fracture. Normal soft tissue structures. Normal visualized paranasal sinuses. CT/Brain/Head without Contrast IMPRESSION: No CT evidence of an acute brain abnormality. Reading Location[facility]
--- NOTE | 2024-12-22 04:35 | RAD_ITS ---
PROCEDURE: CHEST 1 VIEW 12/22/2024 REASON FOR EXAM: NEURO DEFICIT, ACUTE, STROKE SUSPECTED TECHNIQUE: Frontal view of the chest. COMPARISON: October 14, 2022 FINDINGS: There is cardiomegaly with mild central vascular congestion. There is no focal infiltrate or consolidation. There is no pneumothorax or effusion. Aortic calcifications are visible. Surgical clips are noted in the lower neck. Dextroscoliosis of the thoracic spine appears unchanged. RAD/Chest 1 View IMPRESSION: There is cardiomegaly with mild central vascular congestion. Reading Location: [facility]
[2024-12-22 04:47] LABS: Hematocrit 39.5 % (37-47); Hemoglobin 12.8 g/dL (12.0-15.0); Immature Granulocytes Count 0.010 X10^3/uL (0.0-0.0); Mean Corp Hgb Conc 32.4 g/dL (32-36); Mean Corpuscular Volume 91.6 fL (81-99); Mean Platelet Vol. 9.6 fl (6.2-12.0); NRBC Flagged by Analyzer 0 % (0-5); Platelet Count 273 K/mm3 (150-450); RBC Distribution Width CV 12.6 % (11.6-14.6); RBC Distribution Width SD 42.5 fl (35.1-43.9); Red Blood Count 4.31 M/mm3 (4.2-5.4); White Blood Count 5.6 K/mm3 (4.4-11.0)
[2024-12-22 04:57] LABS: Partial Thromboplast Time 28.2 Seconds (24.1-36.2); Prothrombin Time (Protime)PT. 12.8 SECONDS (11.7-14.9)
[2024-12-22 05:00] VITALS: BP 150/61; PULSE 66; RESP 16; O2SAT 100
[2024-12-22 05:08] LABS: Anion Gap 10 (5-15); BUN 21 mg/dL (4-19); BUN/Creat Ratio 27.8 RATIO (10-20); Calcium,Total 9.5 mg/dL (7.6-11.0); Carbon Dioxide 27.5 mmol/L (21.0-32.0); Chloride 105 mmol/L (98-108); Estimated Creatinine Clearance 58.47 ml/min (50-250); Glucose 107 mg/dL (70-99); Potassium 3.8 mmol/L (3.3-5.1); Troponin T High Sensitivity 17 ng/L (<=14)
--- NOTE | 2024-12-22 05:21 | EX.ED.DYSGE1 ---
HPI History of Present Illness Chief Complaint: Neuro S[facility] Medical History Cancer HTN (hypertension) Home Medications ?Medication ?Instructions ?Recorded ?Last Taken ?Type levothyroxine 100 mcg tablet 100 mcg PO DAILY 11/07/14 11/06/14 History lorazepam 0.5 mg tablet 0.5 mg PO DAILY PRN PRN Anxiety 11/07/14 11/04/14 History valsartan 80 1 tab PO PRN PRN Blood Pressure 11/07/14 11/06/14 History mg-hydrochlorothiazide 12.5 mg tablet ascorbic acid (vitamin C) 500 mg 500 mg PO DAILY@0800 06/19/17 Unknown History tablet (Vitamin C) calcium 600 mg (as 1 ea PO DAILY 06/19/17 Unknown History carbonate)-vitamin D3 20 mcg (800 unit) tablet (Caltrate with Vitamin D3) cholecalciferol (vitamin D3) 125 5,000 unit PO DAILY 06/19/17 Unknown History mcg (5,000 unit) capsule conjugated estrogens 0.3 mg tablet 0.3 mg PO QODAY 06/19/17 Unknown History (Premarin) amlodipine 5 mg tablet 5 mg PO DAILY 12/22/24 Unknown History Allergy/AdvReac Type Severity Reaction Status Date / Time midazolam (From Versed) Allergy Other Verified 12/22/24 04:14 Social History (Updated 05/04/17 @ 07:20 by Bull VELIZ, KEREN) Smoking Status: Never smoker alcohol intake: never EXAM Physical Exam Const Vital Signs: 12/22/24 04:10 12/22/24 04:21 12/22/24 05:00 Temperature 97.2 F L Temperature Source Temporal Pulse Rate 99 66 Respiratory Rate 18 16 Blood Pressure 202/90 H 150/61 H Blood Pressure Mean 127 90 Pulse Ox 100 100 100 Oxygen Delivery Method Room Air Room Air Room Air 12/22/24 06:00 12/22/24 06:15 Temperature 98 F Temperature Source Pulse Rate 64 64 Respiratory Rate 16 16 Blood Pressure 158/59 H 158/59 H Blood Pressure Mean 92 92 Pulse Ox 100 100 Oxygen Delivery Method Room Air MDM MDM MDM Narrative Medical decision making narrative: HISTORY OF PRESENT ILLNESS: Chief complaint: Right arm weakness/numbness 69-year-old female history of hypertension, hypothyroidism presents with acute onset of right hand/arm weakness and numbness. Notes this transiently occurred prior to arrival. Last known well was 10 PM on 12/21/2024. Notes symptoms have since resolved. Denies head trauma or loss of consciousness. Denies history of strokes. Notes compliance with medications. States she is recently having issues with her blood pressure as her blood to lower to high causing some issues with treatment. Denies chest pain or shortness of breath. Denies vomiting or diarrhea. REVIEW OF SYSTEMS: Pertinent positives: Numbness/weakness Pertinent negatives: As per HPI PHYSICAL EXAM: Nursing triage notes reviewed, Vital signs reviewed Constitutional: please see [facility] HENT: MMM Eyes: Pupils equal round and reactive to light, Extraocular muscles intact Neck: No stridor, no JVD, full neck ROM Lungs: Clear to auscultation, No wheezing or rales. No increased work of breathing, no conversational dyspnea, no accessory muscle use, no nasal flaring. No respiratory distress noted Heart: Regular rate and rhythm, No murmurs, No rubs and No gallops, 2+ distal pulses (radial, femoral, posterior tibial) in all extremities Abdomen: Soft, there is no tenderness, rigidity, rebound or guarding, no obvious peritoneal signs, no palpable pulsatile abdominal masses, no auscultated abdominal bruit : No CVAT Extremities: No edema Neuro: Alert and oriented x3, neuro exam at baseline, cranial nerves II through XII are intact. No pain with extraocular muscle movement. There is negative test of skew. 5 of 5 strength in upper and lower extremities in flexion extension. Intact sensation to light touch in upper and lower extremity dermatomes. No truncal or extremity ataxia. No dysdiadochokinesia. Normal gait. 2+ reflexes in upper and lower extremities. No meningeal signs. Negative Babinski. NIH of 0. Skin: No rash or lesions noted MEDICAL DECISION MAKING: Chief Complaint: please see HPI External records reviewed: Reviewed prior imaging: No recent advanced imaging of the brain Factors affecting care: As per [facility] Social determinants of health: none History obtained from others: Consults: none [facility] Narrative: Patient was initially hypertensive with blood pressure 202/90 otherwise afebrile nontoxic-appearing. Initial neurologic exam showed no focal abnormalities. NIH of 0. Given NIH of 0 patient was not a stroke team candidate as such a stroke team was activated initially. I considered the following differential diagnosis: TIA, CVA, ICH, hypertensive urgency/emergency, focal seizure I obtained a broad lab and imaging workup to further determine if the patient was suffering from a life-threatening etiology. ALL IMAGES (IF OBTAINED) HAVE BEEN PERSONALLY REVIEWED AND INTERPRETED BY MYSELF. EKG with normal sinus rhythm, rate of 62, normal axis, normal intervals, no STEMI CBC without leukocytosis, severe anemia, no thrombocytopenia. No coagulopathy BMP without evidence of significant electrolyte abnormalities, no anion gap, no acute kidney injury. High-sensitivity troponin is negative, no evidence of myocardial ischemia CT scan of the head, CT of the head neck showed no evidence of obvious ICH, large vessel occlusion or other abnormalities to explain the patient symptoms. Upon reassessment blood pressure improved spontaneously intervention. Repeat blood pressure 150/61 otherwise patient remained hemodynamically stable. Repeat neurologic exam was intact. Patient was asymptomatic. I had a shared decision-making discussion with the patient. The patient was alert and orient x 3 and had capacity to make her own/individual medical decisions. I offered admission given concern for TIA for risk modification and prompt MRI. Patient noted she like to go home and follow with her primary care physician. Was able to arrange outpatient MRI for the patient but made the patient aware that since have an emerge physician I may not be able to follow-up on her MRI results in timely manner. She agreed to follow-up with her electronic medical record as well as with her primary care physician. The patient and/or family, caregivers express understanding. The patient and/or family, caregivers agrees with the plan. Shared decision making: I will have a discussion with the patient and or visitors regarding risk/benefits of further testing or admission. They will be made aware of of the risk/benefits inherent in this decision they will be given the opportunity to voice understanding. Total critical care time today provided was at least 0 minutes. This excludes separately billable procedures. Critical care time (if documented) is secondary to the patient having high probability of clinically significant/life threatening deterioration in the patient's condition which required my urgent intervention. Impression: 1. TIA 2. Poorly controlled hypertension 3. History of hypertension Dispo: Discharge home This note was generated with [employer] dictation software. It may contain incorrect words, spelling, and punctuation that were not noted in review of the chart prior to signing. Lab Data Labs: Laboratory Results - last 24 hr 12/22/24 04:10 WBC 5.6 RBC 4.31 Hgb 12.8 Hct 39.5 MCV 91.6 MCH 29.7 MCHC 32.4 RDW Std Deviation 42.5 RDW Coeff of Cem 12.6 Plt Count 273 MPV 9.6 Immature Gran % (Auto) 0.200 Neut % (Auto) 53.7 Lymph % (Auto) 32.1 [place] % (Auto) 9.6 Eos % (Auto) 3.7 Baso % (Auto) 0.7 Absolute Neuts (auto) 3.0 Absolute Lymphs (auto) 1.81 Nucleated RBC % 0 PT 12.8 INR 1.0 APTT 28.2 Sodium 143 Potassium 3.8 Chloride 105 Carbon Dioxide 27.5 Anion Gap 10 BUN 21 H Creatinine 0.74 Estim Creat Clear Calc 58.47 Est GFR (MDRD) Non-Af 87 BUN/Creatinine Ratio 27.8 H Glucose 107 H Calcium 9.5 Troponin T High Sens 17 H Radiography Diagnostic Testing: Clinical Impression(s) from Imaging Studies Head/Neck CTA 12/22/24 04:21 IMPRESSION: Atherosclerosis without high-grade stenosis. Reading Location: [place] [address] 12/22/24 04:25 IMPRESSION: No CT evidence of an acute brain abnormality. Reading Location: [place] [address] Chest X-Ray 12/22/24 04:35 IMPRESSION: There is cardiomegaly with mild central vascular congestion. Reading [facility] Dis[facility] Plan Triage Chief Complaint: Neuro S/Sx ED Provider: Ramón Kim Dx/Rx/DC Orders Instructions: ED TIA: Transient Ischemic Attack Prescriptions: No Action valsartan-hydrochlorothiazide 1 TABLET tablet 1 tab PO PRN PRN (Reason: Blood Pressure) Patient Comments: blood pressure levothyroxine 100 MCG tablet 100 mcg PO DAILY Patient Comments: thyroid lorazepam 0.5 MG tablet 0.5 mg PO DAILY PRN PRN (Reason: Anxiety) Patient Comments: anxiety Premarin 0.3 MG tablet 0.3 mg PO QODAY ascorbic acid (vitamin C) [Vitamin C] 500 MG tablet 500 mg PO DAILY@0800 cholecalciferol (vitamin D3) 5,000 UNIT capsule 5,000 unit PO DAILY calcium carbonate-vitamin D3 [Caltrate with Vitamin D3] 1 EACH tablet 1 ea PO DAILY amlodipine 5 mg tablet 5 mg PO DAILY Other Ambulatory Orders: Brain without Contrast (Routine) Facility: [facility] - Location: [facility] Ordered By: Dr. Ramón Kim Primary Care Provider: Kahlil Tinajero Referrals: Kahlil Tinajero MD [Primary Care Provider] - Activity Restrictions/Additional Instructions: Thank you for trusting us with your care today! Your imaging studies were reassuring. Specifically CT scan your brain showed no evidence of bleeding in the brain. CT scan of your head and neck with contrast showed NO evidence of obvious blood vessel abnormalities such as aneurysms, dissections or large vessel occlusions. Please begin taking daily aspirin if you do not currently. Baby aspirin (81 mg) Please return to the emergency department if your symptoms change or worsen. Please follow with your primary care physician for further outpatient evaluation and management. Please follow-up with your outpatient MRI as has been ordered. Please follow the results on your online portal or with your primary care physician. Print Language: [place]ralt[place] Disposition Disposition: Home, Self Care Discharge Date/Time: 12/22/24 06:17
--- OUTSIDE RECORDS SUMMARY | 2024-12-22 05:36 | XMS RPT_ITS | CCD ---
Author Organization [facility] Care Team Providers Care Deputy Prosecuting Attorney Name Role Phone GABY PETER Unavailable Unavailable Kahlil Tinajero Attending Unavailable Kahlil Tinajero Primary Care Unavailable Kahlil Tinajero Referring Unavailable Kahlil Tinajero Attending Unavailable Kahlil Tinajero Referring Unavailable Kahlil Tinajero Primary Care Unavailable Kahlil Tinajero Attending Unavailable Lior, Kahlil Referring Unavailable Kahlil Tinajero Primary Care Unavailable Kahlil Tinajero Attending Unavailable Kahlil Tinajero Primary Care Unavailable Lior LI, Dr. Guillory Primary Care Provider Lior LI, Dr. Guillory Attending Provider Lior LI, Dr. Guillory Referring Provider Allergies Allergy Classification Reported Allergen(s) Allergy Type Date of Onset Reaction(s) Facility (1 source) midazolam; Translations: [MIDAZOLAM HCL] Drug Allergy 08-19-2007 [facility] Repository (4 sources) Midazolam Drug Allergy 06-19-2017 Other [facility] Comment on above: CAUSED A MENTAL REAC TION- WAS OUT OF IT (1 source) Midazolam Drug Allergy 06-19-2017 [facility] Medications Current Medications Medication Drug Class(es) Dates Sig (Normalized) Sig (Original) ascorbic acid 500 mg oral tablet (4 sources) Vitamin C Start: 06-19-2017 take 1 tablet by mouth once daily Ascorbic Acid (Vitamin C) (Vitamin C) 500 MG tablet Active 500 mg PO DAILY@0800 June 19, 2017 12:00am calcium carbonate 1500 mg / cholecalciferol 800 unt oral tablet (4 sources) Vitamin D Start: 06-19-2017 Calcium Carbonate-Vitamin D3 (Caltrate 600 Plus D3 Tablet) 1 EACH tablet Active 1 NMA PO DAILY June 19, 2017 12:00am cholecalciferol 0.125 mg oral capsule (4 sources) Vitamin D Start: 06-19-2017 take 1 capsule by mouth once daily Cholecalciferol (Vitamin D3) 5,000 UNIT capsule Active 5000 U PO DAILY June 19, 2017 12:00am estrogens, conjugated (care home) 0.3 mg oral tablet (8 sources) Estrogen Start: 06-19-2017 take 1 tablet by mouth once daily Conjugated Estrogens (Premarin) 0.3 MG tablet Active 0.3 mg PO DAILY June 19, 2017 12:00am Start: 11-07-2014 End: 05-03-2017 take 1 tablet by mouth once daily Conjugated Estrogens 0.3 MG tablet Discontinued 0.3 mg PO DAILY November 06, 2014 11:00pm May 03, 2017 8:37am hydroCHLOROthiazide 12.5 mg / valsartan 80 mg oral tablet (4 sources) Thiazide Diuretic, Angiotensin 2 Receptor Lanre Start: 11-07-2014 Valsartan-Hydrochlorothiazid e 1 TABLET tablet Active 1 {tbl} PO NEEDED as needed for Blood Pressure November 06, 2014 11:00pm Start: 11-07-2014 Valsartan-Hydr ochlorothiazide Active 1 TABLET PO NEEDED November 07, 2014 12:00am levothyroxine sodium 0.1 mg oral tablet (4 sources) l-Thyroxine Start: 11-07-2014 take 1 tablet by mouth once daily Levothyroxine 100 MCG tablet Active 100 ug PO DAILY November 06, 2014 11:00pm LORazepam 0.5 mg oral tablet (4 sources) Benzodiazepine Start: 11-07-2014 take 1 tablet by mouth once daily as needed for anxiety Lorazepam 0.5 MG tablet Active 0.5 mg PO DAILY NEEDED as needed for Anxiety November 06, 2014 11:00pm Completed/Discontinued Medications Medication Drug Class(es) Dates Sig (Normalized) Sig (Original) acetaminophen 325 mg / oxyCODONE hydrochloride 5 mg oral tablet (8 sources) Opioid Agonist Start: 11-08-2014 End: 05-03-2017 Oxycodone-Acetamino phen 1 TABLET tablet Discontinued 1 - 2 {tbl} PO EVERY 4 HOURS NEEDED as needed for PAIN November 08, 2014 1:07pm May 03, 2017 8:38am Start: 11-08-2014 End: 05-03-2017 take 1 tablet by mouth every four hours as needed Oxycodone-Acetaminophen Discontinued 1 - 2 TABLET PO EVERY 4 HOURS NEEDED November 08, 2014 2:07pm May 03, 2017 9:38am Alendronate (4 sources) Bisphosphonate Start: 11-07-2014 End: 05-03-2017 Fosamax Discontinued November 072014 5:07am May 03, 2017 9:37am Start: 11-07-2014 End: 05-03-2017 Fosamax Discontinued November 062014 11:00pm May 03, 2017 8:37am Start: 11-07-2014 End: 05-03-2017 Fosamax Discontinued November 072014 12:00am May 03, 2017 9:37am amoxicillin 875 mg / clavulanate 125 mg oral tablet (4 sources) Penicillin-class Antibacterial Start: 05-03-2017 End: 05-13-2017 Amoxicillin-Pot Clavulanate (Augmentin) 875-125 mg tablet Discontinued 1 {tbl} PO Q12H 20 May 03, 2017 12:00am May 12, 2017 12:00am May 13, 2017 12:05am ferrous sulfate 325 mg oral tablet (4 sources) Start: 11-08-2014 End: 05-03-2017 take 1 tablet by mouth twice daily at mealtime Ferrous Sulfate 325 MG tablet Discontinued 325 mg PO TWICE DAILY WITH MEALS November 07, 2014 11:00pm May 03, 2017 8:38am levoFLOXacin 500 mg oral tablet (4 sources) Quinolone Antimicrobial Start: 11-08-2014 End: 05-03-2017 take 1 tablet by mouth once daily Levofloxacin 500 MG tablet Discontinued 500 mg PO DAILY November 07, 2014 11:00pm May 03, 2017 8:38am metroNIDAZOLE 500 mg oral tablet (4 sources) Nitroimidazole Antimicrobial Start: 11-08-2014 End: 05-03-2017 take 1 tablet by mouth three times daily Metronidazole 500 MG tablet Discontinued 500 mg PO THREE TIMES A DAY November 07, 2014 11:00pm May 03, 2017 8:38am Problems Problem Classification Problem Date Documented Da te Episodic/Chronic Osteoporosis (1 source) Age-related osteoporosis without current pathological fracture; Translations: [Age-related osteoporosis without current pathological fracture] Onset: 02-24-2024 Chronic Other upper respiratory infections (4 sources) Acute sinusitis; Translations: [Acute sinusitis, unspecified] 05-03-2017 Episodic Spondylosis; intervertebral disc disorders; other back problems (1 source) Dorsalgia, unspecified; Translations: [Dorsalgia, unspecified] Onset: 07-02-2024 Episodic Thyroid disorders (5 sources) Hypothyroidism; Translations: [Hypothyroidism, unspecified] Onset: 06-08-2024 11-07-2014 Chronic Unclassified (4 sources) History of thyroid cancer 11-07-2014 Results Test Name Value Interpretation Reference Range Facility Inital Evaluation (1) - PTon 06-28-2024 Inital Evaluation (1) - PT [facility] [address] [place] [address] / REHABILITATION SERVICES INITIAL EVALUATION MR#: [id number] Acct: [id number] Name: ROD MIRAMONTES Rep #: [id number] : 1955 68 From: Regan Hendricks PT, ATC Referring Dr.: Dr. Kahlil Tinajero MD Status: REG RCR Insurance: MEDICARE PART A B [facility] Patient's Visit Information Visit Information Visit Information: ROD MIRAMONTES is a 68 year old F referred to Physical Therapy by Dr. Kahlil Tinajero MD with a diagnosis of SI Joint pain. Date of Evaluation: 06/28/24 Physical Therapist: Regan Hendricks, PT, ATC Visit Plan Frequency: 1x/Week Duration: 1 Week Plan: Issue and instruct pt on HEP of REIL, core stab ex's, and HEP Subjective Subjective: Pt reports she has had a chronic Hx of LBP, but had a bad flare up around Kelsy time. Pt reports she has had x-rays which revealed scoliosis. Pt notes occasional sleep difficulty secondary to LBP. Pt denies any tingling or numbness in her LE's. Pt reports sitting tends to increase her pain. Pt notes walking makes her feel better. Pt reports she has more pain in the morning when she wakes up. Pt reports her pain gets better as she moves throughout the day, but the pain never goes away. Pt reports she has difficulty with getting dressed in the morning secondary to her LB hurting while she is donning her pants. 0/10 pain while sitting here at rest, 8/10 at worst Pain LBP: Pain Intensity (Out of 10): 0 Pain Intensity Range: 8 Objective Objective: Neuro: B LE sensation is WNL to light touch. B patellar reflex= 2/3 ROM: Pt is minimally limited with R SB and extension of the L/S. All other motions are WFL MMT: B LE's are equal and rated at 5/5 throughout Repeated movements: RFIS increases LBP. CELESTINA decreases LBP Balance/Special Test Scores Lower Extremity Functional Score: 64 Goals Goal 1:: I with HEP Goal Time Frame: 1 Week Rehabilitation Potential Physical Therapy Diagnosis: Pt has LBP, intolerance for sitting, and increased morning stiffness secondary to L/S disc derrangement. Rehabilitation Potential: Good Anticipated Interventions Patient/Client Instruction: Educate patient on: Condition and Plan of Care For the Purpose of:: To improve self management Therapeutic Exercise to Include: Strength training, Body mechanics, Postural training, Dynamic Lumbar Stabilization and Quinn Exercises For the Purpose of:: To decrease pain, To increase ROM and To improve muscle performance and motor function Text: Thank you for the opportunity to evaluate your patient. For Medicare and Medicare HMO plans, please review the plan of care and approve it. It will need to be FAXED BACK to us at [phone] for Medicare purposes. For Medicare only, by signing this I certify the plan of care. Please let me know if there are questions or concerns regarding this plan of care. Physician Signature: Date: _ 06/28/24 1304 CC: Dr. Kahlil Tinajero MD [facility] Signed Normal [facility] L/S Spine w Bend Min 6 [place] 06-20-2024 L/S Spine w Bend Min 6 [facility] [address] [place], [place] [address] L/S Spine w Bend Min 6 MR#: [id number] Acct: [id number] Name: ROD MIRAMONTES Rep #: [id number] : 1955 F 68 From: Devon Conway i DO PCP: Dr. Kahlil Tinajero MD Status: REG CLI Study: L/S Spine w Bend Min 6 Vw Date of Exam: Exam# [id number] Ordering Dr: Kahlil Tinajero PROCEDURE: Lumbar spine radiographs, 6 views REASON FOR EXAM: Low back pain TECHNIQUE: 6 views of the lumbar spine were obtained. COMPARISON: None. FINDINGS: 6 views of the lumbar spine were obtained. Bones are osteopenic. Included portions of the pelvis and SI joints are intact. There is moderate leftward curvature of the lumbar spine on the AP view. Included lower lungs clear. There is 15 mm of right lateral subluxation of L2 relative to L3 on the AP view. Grade 1 retrolisthesis of L3 relative to L4. Mild/moderate multilevel degenerative disc and facet disease in the lumbar spine, greatest at L3-4. No acute lumbar vertebral body fracture. No evidence of instability on flexion and extension views. RAD/L/S Spine w Bend Min 6 Vw IMPRESSION: Osteopenia. No acute bony abnormality of the lumbar spine. Moderate leftward convex curvature of the lumbar spine on the AP view. Mild/moderate multilevel degenerative disc and facet disease in the lumbar spine. No evidence of instability on flexion and extension views. If there is persistent pain, short-term follow-up MRI evaluation may be considered. [facility] CC: Dr. Kahlil Tinajero MD Terminal Computer Operator: Signed Normal [facility] TSH QnOrdered By: Laci Tinajero on 05-16-2024 Thyroid Stimulating Hormone (TSH) 0.579 uIU/mL 0.358-3.740 [facility] Thyroid Stim Hormone (TSH)on 05-16-2024 TSH 0.579 uIU/mL Normal 0.358-3.740 [facility] Comment on above: Performed By: #### L 501.9520 #### [facility] [address] [place], [address] Comprehensive Metabolic Prof [facility] 02-04-2024 Albumin [Mass/Vol] 3.7 g/dL Normal 3.2-5.0 [facility] Comment on above: Order Comment: Order Date: 05/11/23 Order Info: [id number] - CMP Order Info: [id number] - LIPID Order Info: [id number] - PHOS Order Info: [id number] - MG Order Info: 3 - TSH Order Info: 302-7 - T4F Performed By: #### L 506.1000, L501.9520, L501.5200, L506.0400, L501.2300, L500.4100, L500.4050, L509.1000 #### [facility] [address] [place], [place], [id number] Albumin/Globulin [Mass ratio] 1.1 {ratio} Normal 0.9-2.4 [facility] Comment on above: Order Comment: Order Date: 05/11/23 Order Info: 785-04 - CMP Order Info: - LIPID Order Info: [id number] - PHOS Order Info: [id number] - MG Order Info: 3 - TSH Order Info: 7 - T4F Performed By: #### L 506.1000, L501.9520, L501.5200, L506.0400, L501.2300, L500.4100, L500.4050, L509.1000 #### [facility] [address] [place], [place], [address] ALK P 67 U/L Normal 45-117 [facility] Comment on above: Order Comment: Order Date: 05/11/23 Order Info: 0786- - CMP Order Info: [id number] - LIPID Order Info: 2776-04 - PHOS Order Info: [id number] - MG Order Info: 3013 - TSH Order Info: 3024-7 - T4F Performed By: #### L 506.1000, L501.9520, L501.5200, L506.0400, L501.2300, L500.4100, L500.4050, L509.1000 #### [facility] [address] [place], [place], [id number] ALT [Catalytic activity/Vol] 22 U/L Normal 13-56 [facility] Comment on above: Order Comment: Order Date: 05/11/23 Order Info: 86-1 - CMP Order Info: [id number] - LIPID Order Info: 2777-1 - PHOS Order Info: [id number] - MG Order Info: 3016-3 - TSH Order Info: 3024-7 - T4F Performed By: #### L 506.1000, L501.9520, L501.5200, L506.0400, L501.2300, L500.4100, L500.4050, L509.1000 #### [facility] [address] [place], [place], [address] AST [Catalytic activity/Vol] 16 U/L Normal 15-37 [facility] Comment on above: Order Comment: Order Date: 05/11/23 Order Info: 785- - CMP Order Info: [id number] - LIPID Order Info: 7-1 - PHOS Order Info: [id number] - MG Order Info: 301-3 - TSH Order Info: 302-7 - T4F Performed By: #### L 506.1000, L501.9520, L501.5200, L506.0400, L501.2300, L500.4100, L500.4050, L509.1000 #### [facility] [address] [place], [place], [address] Bilirubin [Mass/Vol] 0.90 mg/dL Normal 0.20-1.00 [facility] Comment on above: Order Comment: Order Date: 05/11/23 Order Info: 785-1 - CMP Order Info: [id number] - LIPID Order Info: 2777-1 - PHOS Order Info: [id number] - MG Order Info: 3016-3 - TSH Order Info: 3024-7 - T4F Result Comment: For patients on eltrombopag therapy, use of Dimension [place] TBIL is not recommended. Performed By: #### L 506.1000, L501.9520, L501.5200, L506.0400, L501.2300, L500.4100, L500.4050, L509.1000 #### [facility] [address] [place], [address] BUN/CRE 24.8 RATIO High 10-20 [facility] Comment on above: Order Comment: Order Date: 05/11/23 Order Info: 0786-1 - CMP Order Info: [id number] - LIPID Order Info: 2777-1 - PHOS Order Info: 53828-3 - MG Order Info: 3016-3 - TSH Order Info: 3023-7 - T4F Performed By: #### L 506.1000, L501.9520, L501.5200, L506.0400, L501.2300, L500.4100, L500.4050, L509.1000 #### [facility] [address] [place], [address] CA,Total 9.6 mg/dL Normal 8.5-10.1 [facility] Comment on above: Order Comment: Order Date: 05/11/23 Order Info: 0786-1 - CMP Order Info: [id number] - LIPID Order Info: 2777-1 - PHOS Order Info: [id number] - MG Order Info: 3016-3 - TSH Order Info: 3023-7 - T4F Performed By: #### L 506.1000, L501.9520, L501.5200, L506.0400, L501.2300, L500.4100, L500.4050, L509.1000 #### [facility] [address] [place], [address] Chloride [Moles/Vol] 107 mmol/L Normal 98-107 [facility] Comment on above: Order Comment: Order Date: 05/11/23 Order Info: 0786-1 - CMP Order Info: [id number] - LIPID Order Info: 2777-1 - PHOS Order Info: [id number] - MG Order Info: 3016-3 - TSH Order Info: 3024-7 - T4F Performed By: #### L 506.1000, L501.9520, L501.5200, L506.0400, L501.2300, L500.4100, L500.4050, L509.1000 #### [facility] [address] [place], [address] CO2 [Moles/Vol] 30.0 mmol/L Normal 21.0-32.0 [facility] Comment on above: Order Comment: Order Date: 05/11/23 Order Info: 0786-1 - CMP Order Info: 25264-2 - LIPID Order Info: 2777-1 - PHOS Order Info: [id number] - MG Order Info: 3015-06 - TSH Order Info: 3023-10 - T4F Performed By: #### L 506.1000, L501.9520, L501.5200, L506.0400, L501.2300, L500.4100, L500.4050, L509.1000 #### [facility] [address] [place], [address] Creatinine [Mass/Vol] 0.56 mg/dL Normal 0.55-1.02 [facility] Comment on above: Order Comment: Order Date: 05/11/23 Order Info: 0786- - CMP Order Info: [id number] - LIPID Order Info: 2777-1 - PHOS Order Info: 17301-2 - MG Order Info: 3015-06 - TSH Order Info: 3023-10 - T4F Result Comment: The validity of the calculated GFR GFRAA in patients over 70 years has not been determined. Clinical correlation is essential. Performed By: #### L 506.1000, L501.9520, L501.5200, L506.0400, L501.2300, L500.4100, L500.4050, L509.1000 #### [facility] [address] [place], [address] EST GFR - AA 137 mL/min Normal >60 [facility] Comment on above: Order Comment: Order Date: 05/11/23 Order Info: 0786 - CMP Order Info: - LIPID Order Info: 7 - PHOS Order Info: [id number] - MG Order Info: 3015-06 - TSH Order Info: 7 - T4F Result Comment: Afri can [place] GFR Calc Performed By: #### L 506.1000, L501.9520, L501.5200, L506.0400, L501.2300, L500.4100, L500.4050, L509.1000 #### [facility] [address] [place], [place], [address] GAP 4 09-08 [facility] Comment on above: Order Comment: Order Date: 05/11/23 Order Info: 785-04 - CMP Order Info: - LIPID Order Info: [id number] - PHOS Order Info: [id number] - MG Order Info: 3015-06 - TSH Order Info: 3023-10 - T4F Performed By: #### L 506.1000, L501.9520, L501.5200, L506.0400, L501.2300, L500.4100, L500.4050, L509.1000 #### [facility] [address] [place], [place], [id number] GFR/1.73 sq M.predicted among non-blacks MDRD (S/P/Bld) [Vol rate/Area] 113 mL/min/{1.73_m2} Normal >60 [facility] Comment on above: Order Comment: Order Date: 05/11/23 Order Info: 0786 - CMP Order Info: [id number] - LIPID Order Info: 7 - PHOS Order Info: [id number] - MG Order Info: 3015-06 - TSH Order Info: 7 - T4F Result Comment: Non- GFR Calc Performed By: #### L 506.1000, L501.9520, L501.5200, L506.0400, L501.2300, L500.4100, L500.4050, L509.1000 #### [facility] [address] [place], [address] Globulin (S) [Mass/Vol] 3.4 g/dL Normal 2.2-4.2 [facility] Comment on above: Order Comment: Order Date: 05/11/23 Order Info: 86-1 - CMP Order Info: [id number] - LIPID Order Info: 2777-1 - PHOS Order Info: [id number] - MG Order Info: 3016-3 - TSH Order Info: 3024-7 - T4F Performed By: #### L 506.1000, L501.9520, L501.5200, L506.0400, L501.2300, L500.4100, L500.4050, L509.1000 #### [facility] [address] [place], [address] Glucose [Mass/Vol] 87 mg/dL Normal 74-106 [facility] Comment on above: Order Comment: Order Date: 05/11/23 Order Info: 785- - CMP Order Info: [id number] - LIPID Order Info: 2777-1 - PHOS Order Info: [id number] - MG Order Info: 3016-3 - TSH Order Info: 3024-7 - T4F Performed By: #### L 506.1000, L501.9520, L501.5200, L506.0400, L501.2300, L500.4100, L500.4050, L509.1000 #### [facility] [address] [place], [address] Potassium [Moles/Vol] 4.1 mmol/L Normal 3.5-5.1 [facility] Comment on above: Order Comment: Order Date: 05/11/23 Order Info: 785-1 - CMP Order Info: [id number] - LIPID Order Info: 2777-1 - PHOS Order Info: [id number] - MG Order Info: 3016-3 - TSH Order Info: 3024-7 - T4F Performed By: #### L 506.1000, L501.9520, L501.5200, L506.0400, L501.2300, L500.4100, L500.4050, L509.1000 #### [facility] [address] [place], [address] Sodium [Moles/Vol] 141 mmol/L Normal 136-145 [facility] Comment on above: Order Comment: Order Date: 05/11/23 Order Info: 86-1 - CMP Order Info: [id number] - LIPID Order Info: 2777-1 - PHOS Order Info: 36013-0 - MG Order Info: 3016-3 - TSH Order Info: 3024-7 - T4F Performed By: #### L 506.1000, L501.9520, L501.5200, L506.0400, L501.2300, L500.4100, L500.4050, L509.1000 #### [facility] [address] [place], [address] T PROT 7.1 g/dL Normal 6.4-8.2 [facility] Comment on above: Order Comment: Order Date: 05/11/23 Order Info: 785-1 - CMP Order Info: [id number] - LIPID Order Info: 2777-1 - PHOS Order Info: [id number] - MG Order Info: 3016-3 - TSH Order Info: 3024-7 - T4F Performed By: #### L 506.1000, L501.9520, L501.5200, L506.0400, L501.2300, L500.4100, L500.4050, L509.1000 #### [facility] [address] [place], [address] Urea nitrogen [Mass/Vol] 14 mg/dL Normal 7-18 [facility] Comment on above: Order Comment: Order Date: 05/11/23 Order Info: 0786-1 - CMP Order Info: [id number] - LIPID Order Info: 2777-1 - PHOS Order Info: 20632-1 - MG Order Info: 3016-3 - TSH Order Info: 3024-7 - T4F Performed By: #### L 506.1000, L501.9520, L501.5200, L506.0400, L501.2300, L500.4100, L500.4050, L509.1000 #### [facility] [address] [place], [address] L501.2276on 02-04-2024 Ionized Calcium 5.04 mg/dL Normal 4.36-5.20 [facility] Comment on above: Performed By: #### L 501.2276 #### [facility] [address] [place], [address] Lipid Profileon 02-04-2024 Cholesterol [Mass/Vol] 199 mg/dL Normal 200 [facility] Comment on above: Order Comment: Order Date: 05/11/23 Order Info: 0786-1 - CMP Order Info: [id number] - LIPID Order Info: 7-1 - PHOS Order Info: [id number] - MG Order Info: 3 - TSH Order Info: 3023-10 - T4F Result Comment: <200 mg/dL Desirable 200-240 mg/dL Borderline >240 mg/dL High Risk Performed By: #### L 506.1000, L501.9520, L501.5200, L506.0400, L501.2300, L500.4100, L500.4050, L509.1000 #### [facility] [address] [place], [address] Cholesterol in HDL [Mass/Vol] 86 mg/dL Normal [facility] Comment on above: Order Comment: Order Date: 05/11/23 Order Info: 0786-1 - CMP Order Info: [id number] - LIPID Order Info: 2777-1 - PHOS Order Info: [id number] - MG Order Info: 3013 - TSH Order Info: 3027 - T4F Result Comment: The drugs N-Acetylcysteine and Metamizole may falsely depress this assay. Reference Range HDL <40 mg/dL Low HDL Cholesterol HDL >or= 60 mg/dL High HDL Cholesterol Performed By: #### L 506.1000, L501.9520, L501.5200, L506.0400, L501.2300, L500.4100, L500.4050, L509.1000 #### [facility] [address] [place], [address] Cholesterol in LDL [Mass/Vol] 103 mg/dL Normal 0-130 [facility] Comment on above: Order Comment: Order Date: 05/11/23 Order Info: 785-1 - CMP Order Info: [id number] - LIPID Order Info: 2777-1 - PHOS Order Info: [id number] - MG Order Info: 3 - TSH Order Info: 7 - T4F Performed By: #### L 506.1000, L501.9520, L501.5200, L506.0400, L501.2300, L500.4100, L500.4050, L509.1000 #### [facility] [address] [place], [address] Cholesterol in VLDL [Mass/Vol] 10 mg/dL Normal 5-40 [facility] Comment on above: Order Comment: Order Date: 05/11/23 Order Info: 785-04 - CMP Order Info: 01178-0 - LIPID Order Info: 7-1 - PHOS Order Info: [id number] - MG Order Info: 301-3 - TSH Order Info: 7 - T4F Performed By: #### L 506.1000, L501.9520, L501.5200, L506.0400, L501.2300, L500.4100, L500.4050, L509.1000 #### [facility] [address] [place], [address] Triglyceride [Mass/Vol] 49 mg/dL Normal [facility] Comment on above: Order Comment: Order Date: 05/11/23 Order Info: 785-1 - CMP Order Info: [id number] - LIPID Order Info: 2777-1 - PHOS Order Info: [id number] - MG Order Info: 3016-3 - TSH Order Info: 302-7 - T4F Result Comment: The drugs N-Acetylcysteine and Metamizole may falsely depress this assay. Serum Triglycerides Reference Interval Normal <150 mg/dL Borderline high 150 - 199 mg/dL High 200 - 499 mg/dL Very High > or = 500 mg/dL Performed By: #### L 506.1000, L501.9520, L501.5200, L506.0400, L501.2300, L500.4100, L500.4050, L509.1000 #### [facility] [address] [place], [address] Magnesiumon 02-04-2024 Magnesium [Mass/Vol] 2.4 mg/dL Normal 1.6-2.6 [facility] Comment on above: Order Comment: Order Date: 05/11/23 Order Info: 0786-1 - CMP Order Info: [id number] - LIPID Order Info: 2777-1 - PHOS Order Info: 40014-9 - MG Order Info: 3016-3 - TSH Order Info: 3027 - T4F Performed By: #### L 506.1000, L501.9520, L501.5200, L506.0400, L501.2300, L500.4100, L500.4050, L509.1000 #### [facility] [address] [place] [place], [address] PTHINon 02-04-2024 PTH 51.5 pg/mL Normal 18.4-80.1 [facility] Comment on above: Order Comment: Order Date: 05/11/23 Order Info: 0565-1 - PTHIN Performed By: #### L 506.1000, L501.9520, L501.5200, L506.0400, L501.2300, L500.4100, L500.4050, L509.1000 #### [facility] [address] [place], [address] Phosphoruson 02-04-2024 Phosphate [Mass/Vol] 3.4 mg/dL Normal 2.5-4.9 [facility] Comment on above: Order Comment: Order Date: 05/11/23 Order Info: [id number] - CMP Order Info: [id number] - LIPID Order Info: [id number] - PHOS Order Info: [id number] - MG Order Info: [id number] - TSH Order Info: [id number] - T4F Performed By: #### L 506.1000, L501.9520, L501.5200, L506.0400, L501.2300, L500.4100, L500.4050, L509.1000 #### [facility] [address] [place], [address] T4 Free Directon 02-04-2024 T4 FREE DIRECT 1.40 ng/dL Normal 0.76-1.46 [facility] Comment on above: Order Comment: Order Date: 05/11/23Order Info: [id number] - CMPOrder Info: [id number] - LIPIDOrder Info: [id number] - PHOSOrder Info: [id number] - MGOrder Info: [id number] - TSHOrder Info: [id number] - T4F Performed By: #### L 501.2276 #### [facility] [address] [place], [address] Thyroid Stim Hormone (TSH)on 02-04-2024 TSH 0.178 uIU/mL Low 0.358-3.740 [facility] Comment on above: Order Comment: Order Date: 05/11/23Order Info: [id number] - CMPOrder Info: [id number] - LIPIDOrder Info: [id number] - PHOSOrder Info: [id number] - MGOrder Info: [id number] - TSHOrder Info: [id number] - T4F Performed By: #### L 501.2276 #### [facility] [address] [place], [address] Vitamin D,25 Hydroxyon 02-03 Vitamin D 25-OH 54.6 ng/mL Normal [facility] Comment on above: Order Comment: Order Date: 05/11/23 Order Info: [id number] - VITD25 Result Comment: Kia min D 25(OH) Status Range Deficiency <20 ng/mL (50nmol/L) Insufficiency 20 - 30 ng/mL (50 - 75 nmol/L) Sufficiency 30 - 100 ng/mL (75 - 250 nmol/L) Toxicity >100 ng/mL (>250 nmol/L) Performed By: #### L 506.1000, L501.9520, L501.5200, L506.0400, L501.2300, L500.4100, L500.4050, L509.1000 #### [facility] [address] [place], [address] Basophil percentageOrdered B y: Laci Tinajero on 10-29-2022 Bilirubin [Mass/Vol] 0.60 mg/dL 0.20-1.00 [facility] Comment on above: For patients on eltr ombopag therapy, use of Dimension [place] TBIL is not recommended. Chloride [Moles/Vol] 108 mmol/L 98-107 [facility] Cholesterol [Mass/Vol] 197 mg/dL <200 [facility] Comment on above: <200 mg/dL Desirable 200-240 mg/dL Borderline >240 mg/dL High Risk Glucose [Mass/Vol] 92 mg/dL 74-106 [facility] Potassium [Moles/Vol] 4.2 mmol/L 3.5-5.1 [facility] Protein [Mass/Vol] 7.4 g/dL 6.4-8.2 [facility] Sodium [Moles/Vol] 141 mmol/L 136-145 [facility] Triglyceride [Mass/Vol] 65 mg/dL <199 [facility] Comment on above: The drugs N-Acetylcy steine and Metamizole may falsely depress this assay.Serum Triglycerides Reference Interval Normal <150 mg/dL Borderline high 150 - 199 mg/dL High 200 - 499 mg/dL Very High > or = 500 mg/dL Laboratory - Chemistry and C hemistry - challengeOrdered By: Laci Tinajero on 10-29-2022 ALP [Catalytic activity/Vol] 73 U/L 45-117 [facility] ALT [Catalytic activity/Vol] 19 U/L 13-56 [facility] CO2 [Moles/Vol] 27.0 mmol/L 21.0-32.0 [facility] Free T4 [Mass/Vol] 1.46 ng/dL 0.76-1.46 [facility] Globulin (S) [Mass/Vol] 3.9 g/dL 2.2-4.2 [facility] Urea nitrogen/Creatinine [Mass ratio] 27.6 mg/mg 10-20 [facility] No Panel InformationOrdered By: Laci Tinajero on 10-29-2022 Estimated GFR (MDRD) Amer 116 mL/min >60 [facility] Comment on above: GFR Calc Estimated GFR (MDRD) Non-Af Amer 96 mL/min >60 [facility] Comment on above: Non- GFR Calc Thyroid Stimulating Hormone (TSH) 0.15 uIU/mL 0.358-3.74 [facility] Vitamin D 25-Hydroxy 60.4 ng/mL [facility] Comment on above: Vitamin D 25(OH) Sta tus Range Deficiency <20 ng/mL (50nmol/L) Insufficiency 20 - 30 ng/mL (50 - 75 nmol/L) Sufficiency 30 - 100 ng/mL (75 - 250 nmol/L) Toxicity >100 ng/mL (>250 nmol/L) Serum or plasma albumin bruna urement (mass/volume)Ordered By: Laci Tinajero on 10-29-2022 Albumin [Mass/Vol] 3.5 g/dL 3.2-5.0 [facility] Serum or plasma albumin/glob ulin mass ratioOrdered By: Laci Tinajero on 10-29-2022 Albumin/Globulin [Mass ratio] 0.9 {ratio} 0.9-2.4 [facility] Serum or plasma calcium bruna urement (mass/volume)Ordered By: Laci Tinajero on 10-29-2022 Calcium [Mass/Vol] 9.4 mg/dL 8.5-10.1 [facility] Serum or plasma cholesterol in HDL measurement (mass/volume)Ordered By: Laci Tinajero on 10-29-2022 Cholesterol in HDL [Mass/Vol] 69 mg/dL >40 [facility] Comment on above: The drugs N-Acetylcy steine and Metamizole may falsely depress this assay. Reference Range HDL <40 mg/dL Low HDL Cholesterol HDL >or= 60 mg/dL High HDL Cholesterol Serum or plasma cholesterol in VLDL measurement (mass/volume)Ordered By: Laci Tinajero on 10-29-2022 Cholesterol in VLDL [Mass/Vol] 13 mg/dL 5-40 [facility] Serum or plasma creatinine m easurement (mass/volume)Ordered By: Laci Tinajero on 10-29-2022 Creatinine [Mass/Vol] 0.65 mg/dL 0.55-1.02 [facility] Comment on above: The validity of the calculated GFR & GFRAA in patients over 70 years has not been determined. Clinical correlation is essential. Serum or plasma low density lipoprotein (LDL) cholesterol measurement (mass/volume)Ordered By: Laci Tinajero on 10-29-2022 Cholesterol in LDL [Mass/Vol] 115 mg/dL 0-130 [facility] Serum or plasma urea nitroge n measurement (mass/volume)Ordered By: Laci Tinajero on 10-29-2022 Urea nitrogen [Mass/Vol] 18 mg/dL 7-18 [facility] Thin prep Papanicolaou smear with manual screeningOrdered By: Laci Tinajero on 10-29-2022 Thin prep Papanicolaou smear with manual screening 20 U/L 15-37 [facility] Thin prep Papanicolaou smear with manual screening 6 5-15 [facility] Basophil percentageon 2021 Basophil percentage 3.7 mg/dL 2.5-4.9 [facility] Work Phone: Chloride [Moles/Vol] 108 mmol/L 98-107 [facility] Work Phone: Glucose [Mass/Vol] 87 mg/dL 74-106 [facility] Work Phone: Potassium [Moles/Vol] 3.8 mmol/L 3.5-5.1 [facility] Work Phone: Sodium [Moles/Vol] 142 mmol/L 136-145 [facility] Work Phone: Laboratory - Chemistry and C hemistry - challengeon 07-15-2021 CO2 [Moles/Vol] 31.0 mmol/L 21.0-32.0 [facility] Work Phone: [phone] Magnesium [Mass/Vol] 2.2 mg/dL 1.6-2.6 [facility] Work Phone: Urea nitrogen/Creatinine [Mass ratio] 22.3 mg/mg 10-20 [facility] Work Phone: [phone] No Panel Informationon 07-15 Estimated GFR (MDRD) Amer 122 mL/min >60 [facility] Work Phone: Comment on above: GFR Calc Estimated GFR (MDRD) Non-Af Amer 101 mL/min >60 [facility] Work Phone: Comment on above: Non- GFR Calc Ionized Calcium 5.1 mg/dL [facility] Work Phone: Comment on above: Performed at: [facility] [employer] [id number] Director: Loyd Christian PhD, Phone: [phone] Thyroid Stimulating Hormone (TSH) 0.23 uIU/mL 0.358-3.74 [facility] Work Phone: [phone] Vitamin D 25-Hydroxy 53.1 ng/mL [facility] Work Phone: Comment on above: Vitamin D 25(OH) Sta tus Range Deficiency <20 ng/mL (50nmol/L) Insufficiency 20 - 30 ng/mL (50 - 75 nmol/L) Sufficiency 30 - 100 ng/mL (75 - 250 nmol/L) Toxicity >100 ng/mL (>250 nmol/L) Serum or plasma calcium bruna urement (mass/volume)on 07-15-2021 Calcium [Mass/Vol] 9.4 mg/dL 8.5-10.1 [facility] Work Phone: [phone] Serum or plasma creatinine m easurement (mass/volume)on 07-15-2021 Creatinine [Mass/Vol] 0.63 mg/dL 0.55-1.02 [facility] Work Phone: Comment on above: The validity of the calculated GFR & GFRAA in patients over 70 years has not been determined. Clinical correlation is essential. Serum or plasma urea nitroge n measurement (mass/volume)on 07-15-2021 Urea nitrogen [Mass/Vol] 14 mg/dL 7-18 [facility] Work Phone: Thin prep Papanicolaou smear with manual screeningon 07-15-2021 Thin prep Papanicolaou smear with manual screening 3 -15 [facility] Work Phone: CNOVon 05-19-2017 CNOV Office Visit (PODIWS) ROD MIRAMONTES ([id number]) 1955 FDate Time Provider Department05/19/17 12:40 PM GABY PETER PODPAUL During your visit today, we recorded the following information about you:Gaby Peter DPM 05/19/2017 1:00 PM SignedInitial Podiatric Office Visit:Chief Complaint: This 61 year old female who presents with chiefcomplaint:bunion of left footHPIPatient presents to clinic for evaluation of bunion deformity of left foot. Shehas had bunion causing her pain especially in narrow shoes. Patient has triedwider shoes but has difficult time with wider shoes because her feet are narrowin back. She had surgery on right bunion several years ago and is doing wellwith this. Patient does not have xrays to review.PAIN EVALUATION 05/19/2017 Pain Score: 3 Pain Location: Foot-Right Description: Aching Pt states it feels like someone is stepping on her foot Duration Amount of Time: 2 Duration Units: Months Frequency: Intermittent Intervention: Reposition;RelaxationNo results found for: [id number]: No Pcp (History) (Inactive)PAST MEDICAL HISTORYDiagnosis Date- ANEMIA NOS 08/25/2007- cancer thyroid cancer- INSOMNIA NOS 08/19/2007- LEG VARICOSITY W INFLAM 12/06/2007 Dr. 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 Richardson. Legally blind on left.- SYMPTOMATIC FEMALE CLIMACTERIC STATE 08/19/2007 Decreased Premarin to 0.3 mg from 0.625 mg in 10-02- UMBILICAL HERNIA 08/19/2007 Noted incidentally in 08-02: no need for surgery- Unspecified Essential Hypertension- VITAMIN D DEFICIENCY NOS 12/04/2008Current Outpatient Prescriptions:alendronate (FOSAMAX) 70 mg tablet Take 35 mg by mouth once each week.levothyroxine sodium(SYNTHROID 100 MCG TAB) take 7 ANDamp; 1/2 pills per weekERGOCALCIFEROL (VITAMIN D2) 50,000 UNIT CAP Take one(1) capsule a week for 12weeksvalsartan/hydrochl orothiazide(DIOVAN HCT 80 MG-12.5 MG TAB) Take one(1) tabletdaily.LORAZEPAM 0.5 MG TAB Take one tablet for occasional insomniaestrogens,conjuga nemesio(PREMARIN 0.3 MG TAB) Take one(1) tablet daily.calcium carb/vit d3/minerals(CALTRATE PLUS 600 MG-400 UNIT TAB) 2 tabs a dayibandronate sodium(BONIVA 150 MG TAB) Take one(1) tablet once per month in themorning with a full glass of water, on an empty stomach, and do not takeanything else by mouth or lie down for the next 30 minutes.betamet diprop/prop gly(DIPROLENE AF 0.05 % TOPICAL CREAM) use twice a day asneededNo current facility-administered medications for this visit.ALLERGIESAllergen Reactions- Versed [Midazolam H* seizurePAST SURGICAL HISTORYProcedure Laterality Date- PAST SURGICAL HISTORY OF 1999 retina vein occlusion, LEFT- PAST SURGICAL HISTORY OF 2006 foot surgery- PAST SURGICAL HISTORY OF 2007 hand surgery- PAST SURGICAL HISTORY OF Right leg endovascular vein surgery- THYROIDECTOMY 1980,1989 thryoid CA- TOTAL ABDOM HYSTERECTOMY 1998 Hysterectomy, TAHFAMILY HISTORYProblem Relation Age of Onset- Arthritis Sister rhuematoid- Other [Other] [OTHER] Mother parkinsons- Arthritis Daughter rhuematoidSocial History Marital status: Spouse name: Years of education: Number of children: 3Occupational HistoryOccupation Employer Commenthome makerSocial History Main Topics Smoking status: Never Smoker Alcohol use: No Drug use: NoREVIEW OF SYSTEMSGENERAL: Negative for Malaise, significant weight loss, feverRESPIRATORY: Negative for cough, wheezing and shortness of breathCARDIOVASCULAR: Negative for chest pain, leg swelling and palpitationsGI: Negative for abdominal discomfort, blood in stools or black stools andchange in bowel habitsGU: Negative for dysuria, frequency and incontinenceMUSCULOSKELET AL: Negative for joint pain or swelling, back pain, and musclepain.SKIN: Negative for lesions, rash, and itching.HEMATOLOGY/LYMPHO LOGY Negative for prolonged bleeding, bruising easily, andswollen nodes.ENDOCRINE: Negative for cold or heat intolerance, polyuria, polydipsia andgoiter.NEURO: negativePhysical Exam:Constitutional: Pt is a well developed 61 year old female who is alert,oriented and cooperativeEyes: Following during examination. No redness or drainage.Respiratory: RR normal and nonlabored. Even breathing. No evidence of distressor shortness of breath.Psychology: Patient is engaged during conversation. Normal affect and mood.Does not appear depressed or anxious during encounter.Vascular:Dorsal is pedis and posterior tibial pulses palpable as b/lCapillary Fill time ANDlt; 5 seconds to digits 1-5 b/lSkin temperature warm to warm proximal to distal b/lHair growth present to digitsNeurological:intact light touch/epicritic sensation b/lintact protective sensationno significant neurological deficitsDermatological:Na ils 1-5 b/l appear normal. Webspaces clean and dry 1-4 b/l. Skin appears wellhydrated and supple. good color, texture, turgor. No open lesions present. Nocallosities present.Musculoskeletal/O rthopaedic:Patient has pain to palpation of left 1st ray along 1st mtpj and medial eminenceModerate bunion is noted of left footFoot type is neutral structurallyAJ ROM is full with knee extended and [id number] MPJ is full when loaded and no pain or crepitus are noted with ROM.MTJ, STJ are full and free of pain and crepitus.+5/5 muscle strength dorsiflexion, plantarflexion, inversion, eversion b/lASSESSMENT:(M20.12) Acquired hallux valgus of left foot (primary encounter diagnosis)(79.672) Pain in left footPLAN:1. History and physical examination performed.2. Discussed bunion deformity. This is a progressive disorder. Discussedconservative options not limited to wider shoes, padding, toe spacer vssurgical options.3. Patient interested in possible surgical options. Recommend xrays and willhave her come back in 2 weeks to discussMattZONIA ChristinaMReferring Provider: SELF [[id number]]Allergies As of Date: 05/19/2017 Noted Allergy ReactionVERSED (MIDAZOLAM HCL) 08/19/2007 Comments: seizureDate Reviewed: 05/19/2017Reviewed by: Rachell Marina RN - Fully AssessedReason for Visit: New Patient [[id number]]Primary Visit Diagnosis:Acquired hallux valgus of left foot [M20.12] Other Visit Diagnosis:Pain in left foot [M79.672]Order(s):XR FOOT GENERAL 3V AP/LAT/OBL LT [[id number]] Order #: [id number] FUTUREPrescriptions as of 05/19/2017 Sig: ALENDRONATE 70 MG TABLET Take 35 mg by mouth once each* SYNTHROID 100 MCG TABLET take 7 AND 1/2 pills per week ERGOCALCIFEROL (VITAMIN D2) 5* Take one(1) capsule a week fo* DIOVAN HCT 80 MG-12.5 MG TABL* Take one(1) tablet daily. LORAZEPAM 0.5 MG TABLET Take one tablet for occasiona* PREMARIN 0.3 MG TABLET Take one(1) tablet daily. CALTRATE PLUS 600 MG CALCIUM-* 2 tabs a day BONIVA 150 MG TABLET Take one(1) tablet once per m* DIPROLENE AF 0.05 % TOPICAL C* use twice a day as neededMedication notes this encounter BONIVA 150 MG TABLET >> Rachell Marina RN 05/19/2017 12:50 PM >> RACHELL MARINA RN [facility] May 19, 2017 12:50 PM Patient not taking, please d/c. DIPROLENE AF 0.05 % TOPICAL CREAM >> Rachell Marina RN 05/19/2017 12:49 PM >> RACHELL MARINA RN [facility] May 19, 2017 12:49 PM Patient not using, please d/c.Problem List As Of Date 05/19/2017 Noted Resolved Malignant Neoplasm of Thyroid Gland [C73] INVALID FOR* More... HYPERTENSION NOS [I10] INVALID FOR* More... More... Insomnia, Unspecified [G47.00] INVALID FOR* More... Unspecified Osteoporosis [M81.0] INVALID FOR* More... SYMPTOMATIC FEMALE CLIMACTERIC STATE [N95.1] INVALID FOR* More... Unspecified Anemia [D64.9] INVALID FOR* Varicose Veins of Lower Extremities with Inflam*INVALID FOR* More... Unspecified Vitamin D Deficiency [E55.9] INVALID FOR* Status:Closed by GABY PETER DPM on 05/19/17 Normal [facility] PROGRESSon 05-19-2017 PROGRESS HNO ID: [id number] thor: Gaby Smithervice: (none)Author Type: PhysicianType: Progress NotesFiled: 05/19/2017 1:00 PMNote Text:Initial Podiatric Office Visit:Chief Complaint: This 61 year old female who presents with chiefcomplaint:bunion of left footHPIPatient presents to clinic for evaluation of bunion deformity of leftfoot. She has had bunion causing her pain especially in narrow shoes.Patient has tried wider shoes but has difficult time with wider shoesbecause her feet are narrow in back. She had surgery on right bunionseveral years ago and is doing well with this. Patient does not havexrays to review.PAIN EVALUATION 05/19/2017 Pain Score: 3 Pain Location: Foot-Right Description: Aching Pt states it feels like someone is stepping on her foot Duration Amount of Time: 2 Duration Units: Months Frequency: Intermittent Intervention: Reposition;RelaxationNo results found for: [id number]: No Pcp (History) (Inactive)PAST MEDICAL HISTORYDiagnosis Date- ANEMIA NOS 08/25/2007- cancer thyroid cancer- INSOMNIA NOS 08/19/2007- LEG VARICOSITY W INFLAM 12/06/2007 Dr. Trevor Campbell.- MALIGN NEOPL THYROID 05/28/2007 TSH 0.58 in 08-01, 0.57 in 06-04 R lobectomy for Papillary Thyroid Caaround with extension so L lobectomy done as well didthyroid scan showing left uptake: pt given I-131 on 04-09-81 (giventhyroid suppression) Repeat scan 05-20-82 showed mild L uptake with nometastasis (rec continue suppression-) Thyroglobulin of no value aspt has anti-Thyroglobulin Ab which falsely lower th- OSTEOPOROSIS NOS 08/19/2007- RETINAL VASC OCCLUS NOS 08/19/2007 Dr. Richardson. Legally blind on left.- SYMPTOMATIC FEMALE CLIMACTERIC STATE 08/19/2007 Decreased Premarin to 0.3 mg from 0.625 mg in 10-02- UMBILICAL HERNIA 08/19/2007 Noted incidentally in 08-02: no need for surgery- Unspecified Essential Hypertension- VITAMIN D DEFICIENCY NOS 12/04/2008Current Outpatient Prescriptions:alendronate (FOSAMAX) 70 mg tablet Take 35 mg by mouth once each week.levothyroxine sodium(SYNTHROID 100 MCG TAB) take 7 AND 1/2 pills per weekERGOCALCIFEROL (VITAMIN D2) 50,000 UNIT CAP Take one(1) capsule a week for12 weeksvalsartan/hydrochlor othiazide(DIOVAN HCT 80 MG-12.5 MG TAB) Take one(1)tablet daily.LORAZEPAM 0.5 MG TAB Take one tablet for occasional insomniaestrogens,conjuga nemesio(PREMARIN 0.3 MG TAB) Take one(1) tablet daily.calcium carb/vit d3/minerals(CALTRATE PLUS 600 MG-400 UNIT TAB) 2 tabs adayibandronate sodium(BONIVA 150 MG TAB) Take one(1) tablet once per month inthe morning with a full glass of water, on an empty stomach, and do nottake anything else by mouth or lie down for the next 30 minutes.betamet diprop/prop gly(DIPROLENE AF 0.05 % TOPICAL CREAM) use twice a dayas neededNo current facility-administered medications for this visit.ALLERGIESAllergen Reactions- Versed [Midazolam H* seizurePAST SURGICAL HISTORYProcedure Laterality Date- PAST SURGICAL HISTORY OF 1999 retina vein occlusion, LEFT- PAST SURGICAL HISTORY OF 2006 foot surgery- PAST SURGICAL HISTORY OF 2007 hand surgery- PAST SURGICAL HISTORY OF Right leg endovascular vein surgery- THYROIDECTOMY 1980,1989 thryoid CA- TOTAL ABDOM HYSTERECTOMY 1998 Hysterectomy, TAHFAMILY HISTORYProblem Relation Age of Onset- Arthritis Sister rhuematoid- Other [Other] [OTHER] Mother parkinsons- Arthritis Daughter rhuematoidSocial History Marital status: Spouse name: Years of education: Number of children: 3Occupational HistoryOccupation Employer Commenthome makerSocial History Main Topics Smoking status: Never Smoker Alcohol use: No Drug use: NoREVIEW OF SYSTEMSGENERAL: Negative for Malaise, significant weight loss, feverRESPIRATORY: Negative for cough, wheezing and shortness of breathCARDIOVASCULAR: Negative for chest pain, leg swelling and palpitationsGI: Negative for abdominal discomfort, blood in stools or black stools andchange in bowel habitsGU: Negative for dysuria, frequency and incontinenceMUSCULOSKELET AL: Negative for joint pain or swelling, back pain, andmuscle pain.SKIN: Negative for lesions, rash, and itching.HEMATOLOGY/LYMPHO LOGY Negative for prolonged bleeding, bruising easily,and swollen nodes.ENDOCRINE: Negative for cold or heat intolerance, polyuria, polydipsia andgoiter.NEURO: negativePhysical Exam:Constitutional: Pt is a well developed 61 year old female who is alert,oriented and cooperativeEyes: Following during examination. No redness or drainage.Respiratory: RR normal and nonlabored. Even breathing. No evidence ofdistress or shortness of breath.Psychology: Patient is engaged during conversation. Normal affect andmood. Does not appear depressed or anxious during encounter.Vascular:Dorsal is pedis and posterior tibial pulses palpable as b/lCapillary Fill time < 5 seconds to digits 1-5 b/lSkin temperature warm to warm proximal to distal b/lHair growth present to digitsNeurological:intact light touch/epicritic sensation b/lintact protective sensationno significant neurological deficitsDermatological:Na ils 1-5 b/l appear normal. Webspaces clean and dry 1-4 b/l. Skin appearswell hydrated and supple. good color, texture, turgor. No open lesionspresent. No callosities present.Musculoskeletal/O rthopaedic:Patient has pain to palpation of left 1st ray along 1st mtpj and medialeminenceModerate bunion is noted of left footFoot type is neutral structurallyAJ ROM is full with knee extended and [id number] MPJ is full when loaded and no pain or crepitus are noted with ROM.MTJ, STJ are full and free of pain and crepitus.+5/5 muscle strength dorsiflexion, plantarflexion, inversion, eversion b/lASSESSMENT:(M20.12) Acquired hallux valgus of left foot (primary encounterdiagnosis)(79.67 2) Pain in left footPLAN:1. History and physical examination performed.2. Discussed bunion deformity. This is a progressive disorder. Discussedconservative options not limited to wider shoes, padding, toe spacer vssurgical options.3. Patient interested in possible surgical options. Recommend xrays andwill have her come back in 2 weeks to discussMatthew Testrake, DPM Normal [facility] Encounters Encounter Date Encounter Type Care Provider Facility Start: 06-28-[address] Abdiaziz Tinajero MD -Physical Therapy Work Phone: Start: 06-28-2024 ambulatory Kahlil Tinajero Faci lity:[facility] Start: 06-20-2024 End: 06-20-[address] Kahlil Tinajero MD Work Phone: [facility] Work Phone: Start: 06-20-2024 End: 06-20-[address] Kahlil Tinajero MD -Radiology, [place] Work Phone: Start: 06-20-2024 End: 06-20-2024 ambulatory Kahlil Tinajero Facility:[facility] Start: 05-16-2024 End: 05-16-[address] [facility] Start: 05-16-2024 End: [facility] Start: 02-04-2024 End: 02-04-[facility] Start: 10-29-2022 End: 10-29-2022 ambulatory [facility] Work Phone: Start: 10-29-2022 End: 10-29-2022 Patient encounter procedure [facility] Work Phone: Start: 10-14-2022 End: 10-14-2022 ambulatory [facility] Work Phone: Start: 10-14-2022 End: 10-14-2022 [facility] Start: 07-15-2021 End: 07-15-2021 [facility] Start: 05-19-2017 End: 05-19-2017 Ambulatory GABY ROME [facility] [place] Procedures Date Procedure Procedure Detail Performing Clinician Start: 06-20-2024 Complete x-ray serie s of lumbar spine with bending views Dr. Kahlil Tinajero MD Work Phone: Start: 10-14-2022 Plain chest X-ray Payers Date Payer Category Payer Medicare [id number] 2024 Self-pay [id number] 2024 Unknown [id number] Unknown [id number] [id number] [id number] Unknown [id number] [id number] [id number] Unknown [id number] [id number] [id number] Unknown [id number] [id number] [id number] Unknown . [id number] Social History Date Type Detail Facility [facility]: [facility] Start: 11-07-2014 None [facility] Start: 11-07-2014 Non-smoker [facility] Start: 1955 Sex Assigned At Female [facility] Start: 06-19-2017 Tobacco smoking stat [facility] Never smoked tobacco (finding) [facility] Start: 07-02-2024 Sex Female (finding) [facility] Radiology Diagnostic study note 06-20-2024 Note Date & Type Note Facility 06-20-2024 Radiology Diagnostic study note [facility] Imaging Services [address] [place] [address] L/S Spine w Bend Min 6 Vw MR#: [id number] Acct: [id number] Name: ROD MIRAMONTES Rep #: [id number] : 1955 F 68 From: [facility] PCP: Dr. Kahlil Tinajero MD Status: REG CLI Study:L/S Spine w Bend Min 6 Vw Date of Exam: 06/20/24 Exam# [id number] Ordering Dr: Reji Tinajero MD PROCEDURE: Lumbar spine radiographs, 6 views REASON FOR EXAM: Low back pain TECHNIQUE: 6 views of the lumbar spine were obtained. COMPARISON: None. FINDINGS: 6 views of the lumbar spine were obtained. Bones are osteopenic. Included portions of the pelvis and SI joints are intact. There is moderate leftward curvature of the lumbar spine on the AP view. Included lower lungs clear. There is 15 mm of right lateral subluxation of L2 relative to L3 on the AP view. Grade 1 retrolisthesis of L3 relative to L4. Mild/moderate multilevel degenerative disc and facet disease in the lumbar spine, greatest at L3-4. No acute lumbar vertebral body fracture. No evidence of instability on flexion and extension views. RAD/L/S Spine w Bend Min 6 Vw IMPRESSION: Osteopenia. No acute bony abnormality of the lumbar spine. Moderate leftward convex curvature of the lumbar spine on the AP view. Mild/moderate multilevel degenerative disc and facet disease in the lumbar spine. No evidence of instability on flexion and extension views. If there is persistent pain, short-term follow-up MRI evaluation may be considered. Reading Location: [facility] CC: Dr. Kahlil Tinajero MD ~ Terminal Computer Operator: Signed [facility] Evaluation note Note Date & Type Note Facility Evaluation note No assessment information availa ble [facility] Work Phone: Reason for referral (narrative) Note Date & Type Note Facility Reason for referral (narrative) No reason for referral information available [facility] Work Phone: Summary Purpose Family History Relationship Condition Age at Onset Recorded Date/T mirela Unknown Family History?No pe rtinent history Unknown November 07, 2014 7:28am Family History?No pe rtinent history Unknown June 19, 2017 11:02am Relationship Condition Age at Onset Recorded Date/T mirela Unknown Family History?No pe rtinent history Unknown November 07, 2014 6:28am Family History?No pe rtinent history Unknown June 19, 2017 10:02am Advance Directives Advance Directive Response Recorded Date/ Time Advance Directives Yes November 07 5:17am Living Will Yes June 19 11:02am Power of [employer] Department Supervisor Yes June 19, 2017 11:02am Advance Directive Response Recorded Date/ Time Living Will Yes June 19 018 10:02am Power of [employer] Department Supervisor Yes June 19, 2017 10:02am Advance Directives Yes November 07 4:17am Chief Complaint and Reason for Visit Chief Complaint EORDER- Cough Chief Complaint EORDER- Cough NEED ORDER Chief Complaint Admit Date LUMBAR PAIN June 20, 2024 2:31pm SI JOINT PAIN/RX HERE June 28, 2024 10 :50am Additional Source Comments INFORMATION SOURCE (unrecogn ized section and content) DATE CREATED AUTHOR 10/19/2017 [facility] DATE CREATED AUTHOR AUTHOR'S ORGANIZ ATION 07/04/2024 [facility] Goals (unrecognized section and content) Goals may be documented in a n alternate sectionGoals may be documented in an alternate sectionGoals may be documented in an alternate sectionGoals may be documented in an alternate section Care Teams (unrecognized sec tion and content) Team Status: Active Member Role Status Dates Dr. Laci Tinajero MD Family Provider Active Dr. Laci Tinajero MD Primary Care Provider Activ e Team Status: Inactive Member Role Status Dates Dr. Laci Tinajero MD Primary Care Provider Activ e Edson Patel MD Attending Provider, Referring Provide r Active Team Status: Inactive Member Role Status Dates Dr. Laci Tinajero MD Primary Care Provider, Attending Provider, Referring Provider Active Team Status: Active Member Role Status Dates Dr. Kahlil Tinajero MD Primary Care Provider Acti ve Team Status: Inactive Member Role Status Dates Dr. Kahlil Tinajreo MD Primary Care Provider Acti ve Start: May 16, 2024 End: May 16, 2024 Dr. Kahlil Tinajero MD Attending Provider Active Start: May 16, 2024 End: May 16, 2024 Dr. Kahlil Tinajero MD Referring Provider Active Start: May 16, 2024 End: May 16, 2024 Team Status: Inactive Member Role Status Dates Dr. Kahlil Tinajero MD Primary Care Provider Acti ve Start: June 20, 2024 End: June 20, 2024 Dr. Kahlil Tinajero MD Attending Provider Active Start: June 20, 2024 End: June 20, 2024 Dr. Kahlil Tinajero MD Referring Provider Active Start: June 20, 2024 End: June 20, 2024 Team Status: Active Member Role Status Dates Dr. Kahlil Tinajero MD Primary Care Provider Acti ve Start: June 28, 2024 Dr. Kahlil Tinajero MD Attending Provider Active Start: June 28, 2024 Dr. Kahlil Tinajero MD Referring Provider Active Start: June 28, 2024 FOR RECORDS PERTAINING TO PATIENTS WHO ARE [...] BE BASED ON THE PRIMARY CLINICAL RECORDS. [facility]. provides no warranty or guarantee of the accuracy or completeness of information in this document.
[2024-12-22 06:00] VITALS: BP 158/59; PULSE 64; RESP 16; O2SAT 100
[2024-12-22 06:15] VITALS: BP 158/59; PULSE 64; RESP 16; TEMP 36.6; O2SAT 100
== END 2024-12-22 06:17 | disposition home or self-care (01) ==
PROVIDERS: Emergency Provider Emergency Medicine; PCP Family Medicine; Visit Provider Emergency Medicine
DX: G45.9 Transient cerebral ischemic attack, unspecified (principal); I10 Essential (primary) hypertension; Z79.899 Other long term (current) drug therapy; R29.700 NIHSS score 0
CPT/HCPCS: 70450; 70496; 70498; 71045; 80048; 84484; 85025; 85610; 85730; 93005; 99284; Q9967; A4216

== ENCOUNTER → 2024-12-27 | Outpatient (CLI) | payer MEDICARE, BC, SELFPAY | END | disposition home or self-care (01) | LOC: OPMRI 11:00 | PROVIDERS: PCP Family Medicine; Referring Provider Emergency Medicine; Visit Provider Emergency Medicine | DX: R20.0 Anesthesia of skin (principal); R53.1 Weakness ==

== ENCOUNTER → 2025-01-23 | Outpatient (CLI) | payer MEDICARE, BC, SELFPAY ==
[2025-01-23 13:27] LABS: AST(SGOT) 25 U/L (<=31); Alanine Aminotransfer ALT/SGPT 16 U/L (<=34); Albumin, Serum 4.3 g/dL (3.4-4.8); Alkaline Phosphatase 59 U/L (35-104); Anion Gap 10 (5-15); BUN 15 mg/dL (4-19); BUN/Creat Ratio 24.4 RATIO (10-20); Calcium,Total 9.5 mg/dL (7.6-11.0); Carbon Dioxide 28.7 mmol/L (21.0-32.0); Chloride 105 mmol/L (98-108); Cholesterol 205 mg/dL (<=200); Globulin 2.5 g/dL (2.2-4.2); Glucose 91 mg/dL (70-99); Low Density Lipoprotein Calc. 108 mg/dL; Potassium 3.9 mmol/L (3.3-5.1); Triglycerides 73 mg/dL; Very Low Density Lipoprotein 15 mg/dL (5-40); cholesterol:hdl ratio screen 2.49
== END | disposition home or self-care (01) ==
LOC: MFPLAB 10:44
PROVIDERS: PCP Family Medicine; Visit Provider Family Medicine
DX: E03.9 Hypothyroidism, unspecified (principal); G45.9 Transient cerebral ischemic attack, unspecified
CPT/HCPCS: 36415; 80053; 80061; 84439; 84443

== ENCOUNTER → 2025-02-20 | Outpatient (CLI) | payer MEDICARE, BC, SELFPAY ==
--- NOTE | 2025-02-20 13:02 | ECHOD_ITS ---
Reason For Study Reason For Study: CARDIOMEGALY Procedure This was a 2D Doppler, Color Flow transthoracic echocardiogram. Exam performed in department. Left Ventricle Normal size and thickness. The left ventricular ejection fraction is 60 %. Normal diastololic function. Right Ventricle Normal right ventricle. Atria The left and right atria are normal. Mitral Valve Mild (1+) mitral valve insufficiency. Tricuspid Valve Trivial tricuspid valve insufficiency. Normal pulmonary artery pressure. Aortic Valve Trisinus/trileaflet aortic valve. Pulmonic Valve The pulmonic valve is not well visualized. Great Vessels Normal sized aortic root. Pericardium/Pleural No pericardial effusion. MMode/2D Measurements & Calculations LVIDd: 4.2 cm IVSd: 0.92 cm LVOT diam: 2.0 cm LVIDs: 3.1 cm LVPWd: 0.85 cm LVOT area: 3.1 cm2 FS: 26.6 % LAV(MOD-bp): 39.0 ml LVAd ap4: 26.5 cm2 SV(MOD-sp4): 40.1 ml LAV(MOD-bp) Indexed: 23.8 ml/m2 LVLd ap4: 8.2 cm SI(MOD-sp4): 24.5 ml/m2 LAV(MOD-sp2): 43.4 ml EDV(MOD-sp4): 72.2 ml LAV(MOD-sp4): 35.5 ml EDV(sp4-el): 72.6 ml LVAs ap4: 16.1 cm2 LVLs ap4: 7.1 cm ESV(MOD-sp4): 32.1 ml ESV(sp4-el): 31.2 ml EF(MOD-sp4): 55.5 % EF(sp4-el): 57.1 % SV(sp4-el): 41.5 ml LA A4 area: 15.1 cm2 LA dimension(2D): 3.1 cm RA A4 area: 16.6 cm2 Time Measurements MV dec time: 0.20 sec Doppler Measurements & Calculations MV E max adelso: 96.6 cm/sec Lat Peak E' Adelso: 8.8 cm/sec Med Peak E' Adelso: 9.6 cm/sec MV A max adelso: 67.2 cm/sec E/E' lat: 11.0 E/E' med: 10.1 MV E/A: 1.4 MV V2 max: 122.8 cm/sec Ao V2 max: 90.7 cm/sec MV max P.1 mmHg MV dec slope: 491.5 cm/sec2 Ao max P.3 mmHg MV V2 mean: 70.2 cm/sec Ao V2 mean: 65.0 cm/sec MV mean P.2 mmHg Ao mean P.9 mmHg MV V2 VTI: 32.3 cm Ao V2 VTI: 23.2 cm AV (velocity ratio): 1.1 MVA(VTI): 2.5 cm2 NEENA(I,D): 3.5 cm2 NEENA(V,D): 3.4 cm2 LV V1 max: 98.5 cm/sec SV(LVOT): 81.0 ml PA V2 max: 94.3 cm/sec LV V1 max P.9 mmHg PA V2 mean: 66.1 cm/sec LV V1 mean P.1 mmHg LV V1 mean: 67.6 cm/sec LV V1 VTI: 26.0 cm ECHO/Echo Complete Interpretation Summary The left ventricular ejection fraction is 60 %. Mild (1+) mitral valve insufficiency. Ordering Physician: Kahlil Tinajero Referring Physician: Kahlil Tinajero Performed By: Beth Peña RCS
== END | disposition home or self-care (01) ==
LOC: CVS 13:01
PROVIDERS: PCP Family Medicine; Referring Provider Family Medicine; Visit Provider Family Medicine
DX: I51.7 Cardiomegaly (principal)
CPT/HCPCS: 93306

== ENCOUNTER → 2025-04-10 | Outpatient (CLI) | payer MEDICARE, BC, SELFPAY ==
[2025-04-10 09:08] LABS: Mucous, Urine 0 SEEN /hpf (<or=2+); Red Blood Cells-Urine 0 SEEN /hpf (0-5)
[2025-04-10 10:49] LABS: Hematocrit 39.5 % (37-47); Hemoglobin 12.5 g/dL (12.0-15.0); Immature Granulocytes Count 0.010 X10^3/uL (0.0-0.0); Mean Corp Hgb Conc 31.6 g/dL (32-36); Mean Corpuscular Volume 93.4 fL (81-99); Mean Platelet Vol. 10.1 fl (6.2-12.0); NRBC Flagged by Analyzer 0 % (0-5); Platelet Count 248 K/mm3 (150-450); RBC Distribution Width CV 12.6 % (11.6-14.6); RBC Distribution Width SD 43.0 fl (35.1-43.9); Red Blood Count 4.23 M/mm3 (4.2-5.4); White Blood Count 3.3 K/mm3 (4.4-11.0)
[2025-04-10 10:51] LABS: Color, Urine Yellow (Yellow); Glucose, Dipstick Normal (Normal); Ketone-Dipstick Negative (Negative); Leukocyte Esterase-Dipstick Negative /ul (Negative); Nitrite-Dipstick Negative (Negative); Occult Blood-Urine Negative /ul (Negative); Protein-Dipstick Negative (Negative); Specific Gravity, Urine 1.015 (1.002-1.030); Urine Bilirubin Dipstick Negative (Negative)
[2025-04-10 11:20] LABS: AST(SGOT) 23 U/L (<=31); Alanine Aminotransfer ALT/SGPT 14 U/L (<=34); Albumin, Serum 4.4 g/dL (3.4-4.8); Alkaline Phosphatase 61 U/L (35-104); Anion Gap 8 (5-15); BUN 19 mg/dL (4-19); BUN/Creat Ratio 32.8 RATIO (10-20); Calcium,Total 9.6 mg/dL (7.6-11.0); Carbon Dioxide 31.3 mmol/L (21.0-32.0); Chloride 105 mmol/L (98-108); Globulin 2.6 g/dL (2.2-4.2); Glucose 96 mg/dL (70-99); Magnesium 2.4 mg/dL (1.5-2.2); Potassium 3.8 mmol/L (3.3-5.1)
[2025-04-10 11:32] LABS: Squamous Epithelial Cells - UA 0-5 SEEN /hpf (5-10)
[2025-04-10 19:29] LABS: CORTISOL AM 9.82 ug/dL (6.02-18.40)
== END | disposition home or self-care (01) ==
PROVIDERS: PCP Family Medicine; Referring Provider Family Medicine; Visit Provider Family Medicine
DX: R41.0 Disorientation, unspecified (principal); E03.9 Hypothyroidism, unspecified
CPT/HCPCS: 36415; 80053; 81001; 82533; 83735; 84439; 84443; 85025; 87086; 87088